=== PATIENT | female | born 1955 | race Two or more races ===

== ENCOUNTER 2023-05-20 22:10 | Inpatient (IN) | payer MEDICARE, OTHER ==
[2023-05-20] MEDS ORDERED: ONDANSETRON 4 MG/2 ML VIAL IVP STA (22:25)
[2023-05-20] MEDS ORDERED: PIPERACILLIN-TAZOBACTAM 3.375 GM in SODIUM CHLORIDE 0.9% 100 ML IVPB STA (22:26)
[2023-05-20] MEDS ORDERED: NALOXONE 0.4 MG/ML 1 ML VIAL IV PRN (22:59)
[2023-05-20] MEDS ORDERED: MORPHINE SULFATE 4 MG/ML SYRINGE IV PRN (23:05)
--- NOTE | 2023-05-20 23:11 | ED ---
Abdominal Pain HPI - General Chief Complaint: Abdominal Pain Stated Complaint: Acute appendicitis Time Seen by Provider: 05/20/23 22:30 Source: patient Mode of arrival: ambulatory Limitations: no limitations - History of Present Illness Initial Comments: Patient presents as a transfer from [place] for acute appendicitis. States that she began having abdominal pain at 2 AM this morning. Described as a generalized pain with nausea and vomiting. Went into the ER where CAT scan was performed and demonstrated a 10 mm fluid filled thick walled appendix with mural enhancement and periappendiceal fat stranding consistent with acute appendicitis. Thickening of the cecum and ascending colon. Wall thickening splenic flexure through rectum. She was given nausea medications and fluids. She was given a dose of Zosyn and requested transfer to our facility as she is currently moving to the area. Patient arrives in continues to complain of [place]. States pain is minimal at a 2 out of 10. Pertinent history regarding the patient's surgical past is that she had a blood clot after back surgery. Denies that she takes any blood thinners at this time. She is status post cholecystectomy and hysterectomy. No other alleviating, precipitating or modifying factors - Related Data Home Medications Medication Instructions Recorded Confirmed Famotidine 40 mg PO BID 05/20/23 05/20/23 LORazepam [Ativan] 0.5 mg PO BID PRN 05/20/23 05/20/23 Levothyroxine Sodium [Synthroid] 75 mcg PO DAILY 05/20/23 05/20/23 Metoprolol Succinate (ER) [Toprol 50 mg PO DAILY 05/20/23 05/20/23 Xl] Oxybutynin Xl [Ditropan XL] 5 mg PO DAILY 05/20/23 05/20/23 Sucralfate [Carafate] 1 gm PO QID PRN 05/20/23 05/20/23 hydroCHLOROthiazide 25 mg PO DAILY 05/20/23 05/20/23 lisinopriL 40 mg PO DAILY 05/20/23 05/20/23 Allergies Allergy/AdvReac Type Severity Reaction Status Date / Time meperidine [From Demerol] Allergy Nausea & Verified 05/20/23 23:09 Vomiting Penicillins Allergy Nausea & Verified 05/20/23 23:09 Vomiting Review of Systems ROS Statement: Those systems with pertinent positive or pertinent negative responses have been documented in the HPI. ROS Other: All systems not noted in ROS Statement are negative. Past Medical History Past Medical History: Cancer, GERD/Reflux, Hypertension, Thyroid Disorder Additional Past Medical History / Comment(s): breast History of Any Multi-Drug Resistant Organisms: None Reported Past Surgical History: Section, Cholecystectomy, Hysterectomy, Tubal Ligation Past Psychological History: No Psychological Hx Reported Smoking Status: Never smoker Past Alcohol Use History: Occasional Past Drug Use History: Marijuana General Exam Limitations: no limitations General appearance: alert, in no apparent distress Head exam: Present: atraumatic, normocephalic, normal inspection Eye exam: Present: normal appearance, PERRL, EOMI. Absent: scleral icterus, conjunctival injection, periorbital swelling ENT exam: Present: normal exam, mucous membranes moist Neck exam: Present: normal inspection. Absent: tenderness, meningismus, lymphadenopathy Respiratory exam: Present: normal lung sounds bilaterally. Absent: respiratory distress, wheezes, rales, rhonchi, stridor Cardiovascular Exam: Present: regular rate, normal rhythm, normal heart sounds. Absent: systolic murmur, diastolic murmur, rubs, gallop, clicks GI/Abdominal exam: Present: soft, tenderness (rlq), normal bowel sounds. Abse nt: distended, guarding, rebound, rigid Extremities exam: Present: normal inspection, full ROM, normal capillary refill. Absent: tenderness, pedal edema, joint swelling, calf tenderness Back exam: Present: normal inspection Neurological exam: Present: alert, oriented X3, CN II-XII intact Psychiatric exam: Present: normal affect, normal mood Skin exam: Present: warm, dry, intact, normal color. Absent: rash Course Vital Signs 05/20/23 22:20 Temperature 99.2 F Pulse Rate 78 Respiratory 16 Rate Blood Pressure 122/95 O2 Sat by Pulse 97 Oximetry Medical Decision Making - Medical Decision Making Was pt. sent in by a medical professional or institution (, PA, PRODUCTION COST ESTIMATOR, urgent care, hospital, or long-term...) When possible be specific @ -Patient was sent in from [facility] in [place] Did you speak to anyone other than the patient for history (EMS, parent, family, police, friend...)? What history was obtained from this source @ -Spoke with EMS in regards to her workup Did you review nursing and triage notes (agree or disagree)? Why? @ -I reviewed and agree with nursing and triage notes Were old charts reviewed (outside hosp., previous admission, EMS record, old EKG, old radiological studies, urgent care reports/EKG's, long-term records)? Report findings @ -No old charts were reviewed Differential Diagnosis (chest pain, altered mental status, abdominal pain women, abdominal pain men, vaginal bleeding, weakness, fever, dyspnea, syncope, headache, dizziness, GI bleed, back pain, seizure, CVA, palpatations, mental health, musculoskeletal)? @ -Differential Abdominal Pain Women: Appendicitis, Cholecystitis, diverticulosis, ischemic bowel, pancreatitis, hepatitis, UTI, gastroenteritis, AAA, incarcerated hernia, bowel obstruction, constipation, inflammatory bowel, hepatitis, peptic ulcer disease, splenic infarction, perforated viscus, vulvitis, ovarian torsion, PID, kidney stone, placenta abruption, this is not meant to be an all-inclusive list EKG interpreted by me (3pts min.). @ -Yes and demonstrates sinus rhythm with a rate of 66. OK interval 184. QRS 101. QTC of 434. No acute ST segment elevations or depressions X-rays interpreted by me (1pt min.). @ -None done CT interpreted by me (1pt min.). @ -None done U/S interpreted by me (1pt. min.). @ -None done What testing was considered but not performed or refused? (CT, X-rays, U/S, labs)? Why? @ -None What meds were considered but not given or refused? Why? @ -None Did you discuss the management of the patient with other professionals (professionals i.e. , PA, PRODUCTION COST ESTIMATOR, lab, RT, psych nurse, social media community manager, curriculum supervisor, teacher, juvenile officer, immigration case manager)? Give summary @ -I spoke with Dr. Russell who accepts admission Was smoking cessation discussed for >3mins.? @ -No Was critical care preformed (if so, how long)? @ -No Were there social determinants of health that impacted care today? How? (Ho melessness, low income, unemployed, alcoholism, drug addiction, transportation, low edu. Level, literacy, decrease access to med. care, correction, rehab)? @ -No Was there de-escalation of care discussed even if they declined (Discuss DNR or withdrawal of care, Hospice)? DNR status @ -No What co-morbidities impacted this encounter? (DM, HTN, Smoking, COPD, CAD, Cancer, CVA, ARF, Chemo, Hep., AIDS, mental health diagnosis, sleep apnea, morbid obesity)? @ -None Was patient admitted / discharged? Hospital course, mention meds given and route, prescriptions, significant lab abnormalities, going to OR and other pertinent info. @ -Arrival patient was placed into room 3. A thorough history and physical exam was performed. Patient was given another dose of Zosyn as it has been 8 hours since her last dose. She is also given a dose of nausea medications. I called and spoke with Dr. Russell who agreed to admit the patient. Patient is allowed to eat. She should have clear liquids for breakfast and be made nothing by mouth at lunch. Antibiotics are ordered as well as antibiotics. She requests medicine consult for clearance and an EKG. All of this is ordered. Patient is taken to the floor in stable condition. Undiagnosed new problem with uncertain prognosis? @ -yes Drug Therapy requiring intensive monitoring for toxicity (Heparin, Nitro, Insulin, Cardizem)? @ -No Were any procedures done? @ -No Diagnosis/symptom? @ -acute abdominal pain, acute appendicitis Acute, or Chronic, or Acute on Chronic? @ -acute Uncomplicated (without systemic symptoms) or Complicated (systemic symptoms)? @ -complicated Side effects of treatment? @ -No Exacerbation, Progression, or Severe Exacerbation? @ -No Poses a threat to life or bodily function? How? (Chest pain, [place], [place], pneumonia, PE, COPD, DKA, ARF, appy, cholecystitis, CVA, Diverticulitis, Homicidal, Suicidal, threat to staff... and all critical care pts) @ -No - Lab Data Result diagrams: 05/20/23 23:48 05/20/23 23:48 Disposition Clinical Impression: Acute appendicitis, Abdominal pain Disposition: ADMITTED IP TO THIS HOSP Condition: Stable Is patient prescribed a controlled substance at d/c from ED?: No Time of Disposition: 23:11 Decision to Admit Reason: Admit from EC Decision Date: 05/20/23 Decision Time: 23:11
[2023-05-20] MEDS: SODIUM CHLORIDE 0.9% 1,000 ML IV SCH (23:47)
[2023-05-21 00:10] LABS: ALT 134 U/L (4-34); AST 230 U/L (14-36); African American GFR (CKD) 71 (>60 ml/min/1.73 sqM); Albumin 3.3 g/dL (3.5-5.0); Alkaline Phosphatase 89 U/L (38-126); Anion Gap 6 mmol/L; Blood Urea Nitrogen 15 mg/dL (7-17); Calcium 8.5 mg/dL (8.4-10.2); Carbon Dioxide 23 mmol/L (22-30); Chloride 108 mmol/L (98-107); Glucose 100 mg/dL (74-99); Non-African American GFR(CKD) 61 (>60 ml/min/1.73 sqM); Potassium 3.7 mmol/L (3.5-5.1); Sodium 137 mmol/L (137-145); Total Bilirubin 1.1 mg/dL (0.2-1.3); Total Protein 6.1 g/dL (6.3-8.2)
[2023-05-21 00:12] LABS: Basophils % (A) 0 %; Eosinophils # (A) 0.1 k/uL (0-0.7); Eosinophils % (A) 1 %; HCT 34.4 % (34.0-46.0); HGB 11.5 gm/dL (11.4-16.0); Lymphocytes # (A) 1.2 k/uL (1.0-4.8); Lymphocytes % (A) 19 %; MCHC 33.4 g/dL (31.0-37.0); MCV 95.9 fL (80.0-100.0); Mean Platelet Volume 7.1; Monocytes # (A) 0.4 k/uL (0-1.0); Monocytes % (A) 6 %; Neutrophils # (A) 4.7 k/uL (1.3-7.7); Neutrophils % (A) 73 %; Platelet Count 163 k/uL (150-450); RBC 3.58 m/uL (3.80-5.40); RDW 13.5 % (11.5-15.5); WBC 6.4 k/uL (3.8-10.6)
--- NOTE | 2023-05-21 05:14 | P.CONS ---
History of Present Illness - Reason for Consult Consult date: 05/21/23 Perioperative medical management - Chief Complaint Appendicitis - History of Present Illness 68-year-old female with hypertension hypothyroid Patient was sent in from [facility] where she presented with abdominal pain and nausea and vomiting since 2 in the morning started Tuesday, co mputed tomography scan was done demonstrated 10 mm fluid-filled thick walled appendix with mural enhancement and periappendiceal fat stranding consistent with acute appendicitis. Patient requested that she transferred to our facility as she is moving to our area Patient reports that pain is under control at this time denies any associated diarrhea or GI bleeding denies any urinary changes denies any chest pain or trouble breathing she reports some low-grade fever and chills along with repeated nausea and vomiting. She has history of hypertension she is compliant with her medications takes l isinopril metoprolol and hydrochlorothiazide at home she also has history of hypothyroid on levothyroxine and history of breast cancer Patient denies tobacco smoking and illicit drugs or alcohol review of systems Pertinent positives as noted in HPI. All other systems were reviewed and are negative on exam Constitutional: No acute distress, conversant, pleasant Eyes: Anicteric sclerae, moist conjunctiva, Pupils equal round reactive to light ENMT: NC/AT Oropharynx clear, no erythema, or exudates Neck: Supple, no masses, or JVD No carotid bruits No thyromegaly Lungs: Clear to auscultation Clear to percussion Normal respiratory effort, no accessory muscle use Cardiovascular: Heart regular in rate and rhythm, No murmurs, gallops, or rubs No peripheral edema Abdominal: Soft Tenderness to palpation over the suprapubic and right lower quadrant and right upper quadrant, no guarding, rebound or rigidity Abdomen moving with respiration Normoactive bowel sounds No hepatomegaly, No splenomegaly No palpable mass No abdominal wall hernia noted Skin: Normal temperature, tone, texture, turgor No induration No subcutaneous nodules No rash, lesions No ulcers Extremities: No digital cyanosis No clubbing Pedal pulses intact and symmetrical Radial pulses intact and symmetrical No calf tenderness Psychiatric: Alert and oriented to person, place and time Appropriate affect fair judgement Neuro Muscles Strength 5/5 in all 4 extremities Sensation to light touch grossly present throughout Cranial nerves II-XII grossly intact Lymphatics: no palpable cervical or supraclavicular lymph nodes Past Medical History Past Medical History: Cancer, GERD/Reflux, Hypertension, Pulmonary Embolus (PE), Thyroid Disorder Additional Past Medical History / Comment(s): breast History of Any Multi-Drug Resistant Organisms: None Reported Past Surgical History: Back Surgery, Section, Cholecystectomy, Hysterectomy, Orthopedic Surgery, Tubal Ligation Past Psychological History: No Psychological Hx Reported Smoking Status: Never smoker Past Alcohol Use History: Occasional Past Drug Use History: Marijuana Medications and Allergies Home Medications Medication Instructions Recorded Confirmed Type Famotidine 40 mg PO BID 05/20/23 05/20/23 History LORazepam [Ativan] 0.5 mg PO BID PRN 05/20/23 05/20/23 History Levothyroxine Sodium [Synthroid] 75 mcg PO DAILY 05/20/23 05/20/23 History Metoprolol Succinate (ER) [Toprol 50 mg PO DAILY 05/20/23 05/20/23 History Xl] Oxybutynin Xl [Ditropan XL] 5 mg PO DAILY 05/20/23 05/20/23 History Sucralfate [Carafate] 1 gm PO QID PRN 05/20/23 05/20/23 History hydroCHLOROthiazide 25 mg PO DAILY 05/20/23 05/20/23 History lisinopriL 40 mg PO DAILY 05/20/23 05/20/23 History Allergies Allergy/AdvReac Type Severity Reaction Status Date / Time meperidine [From Demerol] Allergy Nausea & Verified 05/20/23 23:09 Vomiting Penicillins Allergy Nausea & Verified 05/20/23 23:09 Vomiting Physical Exam Vitals: Vital Signs Temp Pulse Pulse Resp BP BP Pulse Ox 05/21/23 00:16 98.2 F 53 L 16 103/68 96 05/20/23 22:20 99.2 F 78 16 122/95 97 Intake and Output 05/20/23 05/20/23 05/21/23 14:59 22:59 06:59 Other: Weight 74.389 kg 74.389 kg Results CBC & Chem 7: 05/20/23 23:48 05/20/23 23:48 Labs: Abnormal Lab Results - Last 24 Hours (Table) 05/20/23 05/20/23 Range/Units 23:48 23:48 RBC 3.58 L (3.80-5.40) m/uL Chloride 108 H (98-107) mmol/L Glucose 100 H (74-99) mg/dL AST 230 H (14-36) U/L ALT 134 H (4-34) U/L Total Protein 6.1 L (6.3-8.2) g/dL Albumin 3.3 L (3.5-5.0) g/dL Assessment and Plan Assessment: Acute appendicitis computed tomography scan was done demonstrated 10 mm fluid-filled thick walled appendix with mural enhancement and periappendiceal fat stranding consistent with acute appendicitis. Follow-up cultures Tylenol for fever Zosyn 3.5 g every 8 hours IV piggyback Further management per primary surgical team Nadia Joyce after midnight IV fluid hydration normal saline with 30 mL per hour Transaminitis AST is 230 ALT is 137 No reports of gallstones on the CAT scan However CAT scan did show thickening of the cecum and ascending colon and splenic flexure Monitor liver enzymes Avoid hepatotoxic meds Hypertension controlled Continue metoprolol Continue lisinopril on postoperative day #1 Hold diuretics Hypothyroid Resume levothyroxine If patient goes strict nothing by mouth consider giving 50% of the oral dose IV DVT prophylaxis heparin subcu 3 times a day Nothing by mouth Full code Blood work showing hemoglobin 11.5 white count 6.4 Renal function unremarkable showing BUN 15 creatinine 0.9 sodium 137 potassium 3.7
[2023-05-21] MEDS: LEVOTHYROXINE 75 MCG TAB PO SCH (06:19)
[2023-05-21] MEDS: PIPERACILLIN-TAZOBACTAM 3.375 GM in SODIUM CHLORIDE 0.9% 100 ML IVPB SCH ×3 (06:19→22:45)
[2023-05-21] MEDS: METOPROLOL SUCCINATE (ER) 50 MG TAB.ER.24H PO SCH (09:16)
[2023-05-21] MEDS: FAMOTIDINE 20 MG TAB PO SCH ×2 (09:16→20:19)
[2023-05-21] MEDS: SODIUM CHLORIDE 0.9% 1,000 ML IV SCH ×3 (09:16→22:46)
[2023-05-21 09:58] LABS: ALT 108 U/L (4-34); AST 136 U/L (14-36); African American GFR (CKD) 71 (>60 ml/min/1.73 sqM); Albumin 3.2 g/dL (3.5-5.0); Albumin/Globulin Ratio 1.2; Alkaline Phosphatase 77 U/L (38-126); Anion Gap 8 mmol/L; Blood Urea Nitrogen 13 mg/dL (7-17); Calcium 8.3 mg/dL (8.4-10.2); Carbon Dioxide 22 mmol/L (22-30); Chloride 109 mmol/L (98-107); Globulin 2.7 g/dL; Glucose 73 mg/dL (74-99); Non-African American GFR(CKD) 62 (>60 ml/min/1.73 sqM); Potassium 3.7 mmol/L (3.5-5.1); Sodium 139 mmol/L (137-145); Total Bilirubin 0.9 mg/dL (0.2-1.3); Total Protein 5.9 g/dL (6.3-8.2)
--- NOTE | 2023-05-21 11:14 | P.GSHP ---
History of Present Illness H&P Date: 05/21/23 CHIEF COMPLAINT: Abdominal pain HISTORY OF PRESENT ILLNESS: The patient is a 68 year old female with past history of breast cancer including bilateral breast reconstruction who comes in with a 2 day history of acute onset right-sided abdominal pain. She reports the pain radiates right upper quadrant to right lower quadrant. She denies previous symptoms. Separately, she reports due for a colonoscopy in almost 10 years. Patient presented to her local hospital and transferred to facility for colitis and possible appendicitis. PAST MEDICAL HISTORY: See list and reviewed PAST SURGICAL HISTORY: See list and reviewed MEDICATIONS: See list and reviewed ALLERGIES: See list and reviewed SOCIAL HISTORY: See list and reviewed FAMILY HISTORY: See list and reviewed REVIEW OF ORGAN SYSTEMS: CONSTITUTIONAL: No fevers or chills. EYES: Denies any trouble with vision. No glasses. HEENT: No difficulties with hearing. No nosebleeds. No difficulty swallowing. RESPIRATORY: Denies pneumonia. Denies any troubles with breathing or dyspnea on exertion. CARDIOVASCULAR: Denies any chest pain, palpitations, or recent heart attacks. GASTROINTESTINAL: Has gastroesophageal reflux disease. Last colonoscopy 10 years ago. GENITOURINARY: Denies any blood in urine or increased urinary frequency. NEUROLOGICAL: Denies any numbness or tingling along the distal extremities. No seizure disorders or headaches. MUSCULOSKELETAL: Denies any back pain, stiffness or joint arthritis. SKIN: No current skin cancer. No rash. PSYCHIATRIC: Denies current depression or suicidal thoughts. ENDOCRINE: Denies current thyroid disorders. Denies any blood sugar glucose intolerance. HEME/LYMPHATIC: Denies any lumps and bumps around the neck. No recent deep venous thrombosis. ALLERGY/IMMUNOLOGY: No immunoglobulin therapy. No immune deficiencies. BREAST: Breast cancer and bilateral reconstruction PHYSICAL EXAM: VITALS: Reviewed CONSTITUTIONAL: Well developed and in no acute distress. EYES: Conjuctivae without sclera icterus. Extraocular movements grossly intact. HEAD, EARS, NOSE, THROAT: Moist buccal mucosa. Head is atraumatic, normocephalic. Hears conversational speech. No nasal drainage. NECK: Supple. No JV distention. No thyroidomegaly. RESPIRATORY: Non-labored respirations and equal bilateral excursions. No gross wheezes. CARDIOVASCULAR: Palpable 2+ radial pulses. ABDOMEN: Tender right-sided abdomen including right upper quadrant. LYMPH: No neck lymphadenopathy. MUSCULOSKELETAL: No clubbing cyanosis or edema SKIN: Warm and well perfused with good skin turgor. NEUROLOGIC: Cranial nerves II through XII grossly intact. No focal or lateralizing signs. PSYCH: Appropriate affect. Alert and oriented to person, place and time. Displays appropriate insight. CLINCAL LABS: Reviewed. WBC normal. IMAGING: Independently reviewed outside imaging demonstrated inflammation involving the ascending colon including hepatic flexure, right lower quadrant and retroperitoneum. Questionable fluid-filled appendix versus small bowel. This is my independent interpretation. RECORDS: previous old records reviewed ASSESSMENT: 1. Right-sided abdominal pain 2. Colitis per computed tomography scan 3. Personal history of breast cancer PLAN: 1. IV fluid hydration. 2. IV antibiotics 3. Recommend repeat CT abdomen and pelvis due to vague presentation of colitis with appendicitis. Treatment of colitis is antibiotics only. 4. Surgical intervention on hold pending repeat CT 5. Care plan discussed with patient ADVANCE DIRECTIVE: Thank you for this kind consultation. Past Medical History Past Medical History: Cancer, GERD/Reflux, Hypertension, Thyroid Disorder Additional Past Medical History / Comment(s): breast History of Any Multi-Drug Resistant Organisms: None Reported Past Surgical History: Section, Cholecystectomy, Hysterectomy, Tubal Ligation Past Psychological History: No Psychological Hx Reported Smoking Status: Never smoker Past Alcohol Use History: Occasional Past Drug Use History: Marijuana Medications and Allergies Home Medications Medication Instructions Recorded Confirmed Type Famotidine 40 mg PO BID 05/20/23 05/20/23 History LORazepam [Ativan] 0.5 mg PO BID PRN 05/20/23 05/20/23 History Levothyroxine Sodium [Synthroid] 75 mcg PO DAILY 05/20/23 05/20/23 History Metoprolol Succinate (ER) [Toprol 50 mg PO DAILY 05/20/23 05/20/23 History Xl] Oxybutynin Xl [Ditropan XL] 5 mg PO DAILY 05/20/23 05/20/23 History Sucralfate [Carafate] 1 gm PO QID PRN 05/20/23 05/20/23 History hydroCHLOROthiazide 25 mg PO DAILY 05/20/23 05/20/23 History lisinopriL 40 mg PO DAILY 05/20/23 05/20/23 History Allergies Allergy/AdvReac Type Severity Reaction Status Date / Time meperidine [From Demerol] Allergy Nausea & Verified 05/20/23 23:09 Vomiting Penicillins Allergy Nausea & Verified 05/20/23 23:09 Vomiting Surgical - Exam Vital Signs Temp Pulse Resp BP Pulse Ox 99.2 F 78 16 122/95 97 05/20/23 22:20 05/20/23 22:20 05/20/23 22:20 05/20/23 22:20 05/20/23 22:20 Results - Labs 05/20/23 23:48 05/21/23 08:10 Abnormal Lab Results - Last 24 Hours (Table) 05/20/23 05/20/23 05/21/23 Range/Units 23:48 23:48 08:10 RBC 3.58 L (3.80-5.40) m/uL Chloride 108 H 109 H (98-107) mmol/L Glucose 100 H 73 L (74-99) mg/dL Calcium 8.3 L (8.4-10.2) mg/dL AST 230 H 136 H (14-36) U/L ALT 134 H 108 H (4-34) U/L Total Protein 6.1 L 5.9 L (6.3-8.2) g/dL Albumin 3.3 L 3.2 L (3.5-5.0) g/dL Diabetes panel 05/20/23 05/21/23 Range/Units 23:48 08:10 Sodium 137 139 (137-145) mmol/L Potassium 3.7 3.7 (3.5-5.1) mmol/L Chloride 108 H 109 H (98-107) mmol/L Carbon Dioxide 23 22 (22-30) mmol/L BUN 15 13 (7-17) mg/dL Creatinine 0.97 0.96 (0.52-1.04) mg/dL Glucose 100 H 73 L (74-99) mg/dL Calcium 8.5 8.3 L (8.4-10.2) mg/dL AST 230 H 136 H (14-36) U/L ALT 134 H 108 H (4-34) U/L Alkaline Phosphatase 89 77 (38-126) U/L Total Protein 6.1 L 5.9 L (6.3-8.2) g/dL Albumin 3.3 L 3.2 L (3.5-5.0) g/dL Calcium panel 05/20/23 05/21/23 Range/Units 23:48 08:10 Calcium 8.5 8.3 L (8.4-10.2) mg/dL Albumin 3.3 L 3.2 L (3.5-5.0) g/dL Pituitary panel 05/20/23 05/21/23 Range/Units 23:48 08:10 Sodium 137 139 (137-145) mmol/L Potassium 3.7 3.7 (3.5-5.1) mmol/L Chloride 108 H 109 H (98-107) mmol/L Carbon Dioxide 23 22 (22-30) mmol/L BUN 15 13 (7-17) mg/dL Creatinine 0.97 0.96 (0.52-1.04) mg/dL Glucose 100 H 73 L (74-99) mg/dL Calcium 8.5 8.3 L (8.4-10.2) mg/dL Adrenal panel 05/20/23 05/21/23 Range/Units 23:48 08:10 Sodium 137 139 (137-145) mmol/L Potassium 3.7 3.7 (3.5-5.1) mmol/L Chloride 108 H 109 H (98-107) mmol/L Carbon Dioxide 23 22 (22-30) mmol/L BUN 15 13 (7-17) mg/dL Creatinine 0.97 0.96 (0.52-1.04) mg/dL Glucose 100 H 73 L (74-99) mg/dL Calcium 8.5 8.3 L (8.4-10.2) mg/dL Total Bilirubin 1.1 0.9 (0.2-1.3) mg/dL AST 230 H 136 H (14-36) U/L ALT 134 H 108 H (4-34) U/L Alkaline Phosphatase 89 77 (38-126) U/L Total Protein 6.1 L 5.9 L (6.3-8.2) g/dL Albumin 3.3 L 3.2 L (3.5-5.0) g/dL
[2023-05-21] MEDS: IOPAMIDOL CONTRAST (ORAL USE) VIAL PO PRN ×2 (11:22→12:31)
[2023-05-21 11:33] VITALS: BMI 30.9
[2023-05-21] MEDS: metroNIDAZOLE-NS PMX 500 MG in SALINE 1 100ML.BAG IVPB SCH ×2 (14:15→17:51)
--- NOTE | 2023-05-21 15:06 | P.PN ---
Subjective Progress Note Date: 05/21/23 CT independently reviewed with appendix unremarkable. Inflammation of the ascending colon and hepatic flexure identified. Adding IV flagyl. Low fiber diet. Await final read from radiology. Surgery today cancelled due to new findings. Objective - Vital Signs Vital signs: Vital Signs Temp 97.9 F 05/21/23 07:00 Pulse 50 L 05/21/23 07:00 Resp 16 05/21/23 07:00 BP 99/61 05/21/23 07:00 Pulse Ox 98 05/21/23 07:00 FiO2 Intake & Output 05/20/23 05/21/23 05/21/23 18:59 06:59 18:59 Weight 74.389 kg 74.389 kg Other: # Voids 2 - Labs CBC & Chem 7: 05/20/23 23:48 05/21/23 08:10 Labs: Abnormal Lab Results - Last 24 Hours (Table) 05/20/23 05/20/23 05/21/23 Range/Units 23:48 23:48 08:10 RBC 3.58 L (3.80-5.40) m/uL Chloride 108 H 109 H (98-107) mmol/L Glucose 100 H 73 L (74-99) mg/dL Calcium 8.3 L (8.4-10.2) mg/dL AST 230 H 136 H (14-36) U/L ALT 134 H 108 H (4-34) U/L Total Protein 6.1 L 5.9 L (6.3-8.2) g/dL Albumin 3.3 L 3.2 L (3.5-5.0) g/dL
[2023-05-21] MEDS: HEPARIN SODIUM,PORCINE 5,000 UNIT/ML 1 ML VIAL SQ SCH ×2 (16:16→22:51)
--- NOTE | 2023-05-21 16:44 | CT ---
EXAMINATION TYPE: CT abdomen pelvis w con DATE OF EXAM: 05/21/2023 COMPARISON: 05/20/2023 INDICATION: Right-sided abdominal pain DLP: 909.20 mGycm, Automated exposure control for dose reduction was used. CONTRAST: 0 mL of Isovue 300. Study performed with Oral Contrast TECHNIQUE: Axial images were obtained from above the diaphragm to the pubic rami in the axial plane a t 5 mm thick sections. Reconstructed images are reviewed on the computer in the coronal plane. FINDINGS: Limited CT sections are obtained the lung bases. The lung bases are clear. Needle hernia is present . Some reflux into the hiatal hernia is evident. CT ABDOMEN: Liver: Normal Spleen: Normal Pancreas: Normal Adrenal glands: The adrenal glands are normal. Gallbladder: Normal Kidneys: No masses are evident. No hydronephrosis is present. There is a 5.4 cm cyst on the upper m edial pole right kidney. Delayed images were obtained through the kidneys, which remain unremarkable . Aorta: Vascular calcification is within the aorta. Inferior vena cava: Normal. CT PELVIS: There is some mild wall thickening within the region of the cecum. Some mild inflammatory changes in right paracolic gutter. Oral contrast extends to the ascending colon region. Air-fluid levels are wit hin proximal transverse colon. Small thickenings transverse colon. Some sigmoid colon wall thickening may be present. Mild colitis in this region should be considered. No acute diverticulitis is evident . There are loops of bowel which are incompletely distended or lack oral contrast limiting their eval uation. Appendix: The appendix may be dilated measuring 1.2 cm. Clinical consideration for acute appendicitis is recommended. This is in the region of inflammatory changes. Urinary bladder: Normal. Genitourinary structures: Prostate is normal. Osseous structures: No suspicious lytic or sclerotic lesions. Post surgical lumbosacral junction fixa tion present. Scoliosis is present. IMPRESSION: 1. Clinical correlation recommended for colitis at the ascending colon and sigmoid colon. 2. There may be inflammatory changes adjacent to dilated appendix suggesting underlying acute appendi citis. Correlate for the patient's surgical history. 3. Hiatal hernia with reflux present.
[2023-05-21] MEDS: ONDANSETRON 4 MG/2 ML VIAL IVP PRN (20:14)
[2023-05-21] MEDS: ACETAMINOPHEN TAB 325 MG TAB PO PRN (20:19)
[2023-05-22] MEDS: metroNIDAZOLE-NS PMX 500 MG in SALINE 1 100ML.BAG IVPB SCH ×5 (00:32→23:44)
[2023-05-22] MEDS: ACETAMINOPHEN TAB 325 MG TAB PO PRN ×2 (00:36→06:04)
[2023-05-22] MEDS: ONDANSETRON 4 MG/2 ML VIAL IVP PRN ×2 (03:45→11:52)
[2023-05-22] MEDS: LEVOTHYROXINE 75 MCG TAB PO SCH (06:03)
[2023-05-22] MEDS: SODIUM CHLORIDE 0.9% 1,000 ML IV SCH ×3 (06:09→22:09)
[2023-05-22 06:23] LABS: ALT 67 U/L (4-34); AST 69 U/L (14-36); African American GFR (CKD) 78 (>60 ml/min/1.73 sqM); Albumin 2.8 g/dL (3.5-5.0); Albumin/Globulin Ratio 1.2; Alkaline Phosphatase 61 U/L (38-126); Anion Gap 5 mmol/L; Blood Urea Nitrogen 10 mg/dL (7-17); Carbon Dioxide 21 mmol/L (22-30); Chloride 113 mmol/L (98-107); Globulin 2.3 g/dL; Glucose 89 mg/dL (74-99); Non-African American GFR(CKD) 68 (>60 ml/min/1.73 sqM); Potassium 3.6 mmol/L (3.5-5.1); Sodium 139 mmol/L (137-145); Total Bilirubin 0.7 mg/dL (0.2-1.3); Total Protein 5.1 g/dL (6.3-8.2)
[2023-05-22] MEDS: PIPERACILLIN-TAZOBACTAM 3.375 GM in SODIUM CHLORIDE 0.9% 100 ML IVPB SCH ×3 (06:36→22:25)
[2023-05-22 06:43] LABS: Basophils % (A) 0 %; Eosinophils # (A) 0.1 k/uL (0-0.7); Eosinophils % (A) 2 %; HGB 10.9 gm/dL (11.4-16.0); Lymphocytes # (A) 0.9 k/uL (1.0-4.8); Lymphocytes % (A) 27 %; MCHC 33.9 g/dL (31.0-37.0); MCV 97.3 fL (80.0-100.0); Mean Platelet Volume 7.5; Monocytes # (A) 0.2 k/uL (0-1.0); Monocytes % (A) 7 %; Neutrophils % (A) 62 %; Platelet Count 114 k/uL (150-450); RBC 3.29 m/uL (3.80-5.40); RDW 13.4 % (11.5-15.5); WBC 3.2 k/uL (3.8-10.6)
[2023-05-22] MEDS: METOPROLOL SUCCINATE (ER) 50 MG TAB.ER.24H PO SCH (08:47)
[2023-05-22] MEDS: FAMOTIDINE 20 MG TAB PO SCH ×2 (08:47→19:55)
[2023-05-22] MEDS: HEPARIN SODIUM,PORCINE 5,000 UNIT/ML 1 ML VIAL SQ SCH ×3 (08:47→19:56)
[2023-05-22] MEDS: lisinopriL 20 MG TAB PO SCH (08:47)
--- NOTE | 2023-05-22 09:29 | P.PN ---
Subjective Progress Note Date: 05/22/23 CHIEF COMPLAINT: Abdominal pain with diarrhea HISTORY OF PRESENT ILLNESS: The patient is a 68-year-old female admitted from outside institution for possible appendicitis. She gives additional history w here she confirms having chronic diarrhea including abdominal pain beyond 1 week to 2 weeks. This morning, abdominal pain has improved with IV antibiotics Flagyl including Zosyn. She reports diarrhea this morning which is clear. She has not had colonoscopy in almost 10 years. No fevers or chills. ROS: No reports of nausea and vomiting. No fevers or chills. No new chest pain. No productive sputum PHYSICAL EXAM: VITAL SIGNS: Reviewed CONSTITUTIONAL: Well developed and in no acute distress. EYES: Conjuctivae without sclera icterus. Extraocular movements grossly intact. HEAD, EARS, NOSE, THROAT: Moist buccal mucosa. Head is atraumatic, normocephalic. Hears conversational speech. No nasal drainage. RESPIRATORY: Non-labored respirations and equal bilateral excursions. CARDIOVASCULAR: Palpable 2+ radial pulses. ABDOMEN: No peritonitis. Decrease right-sided tenderness. MUSCULOSKELETAL: No gross deformity of the lower extremities noted. No clubbing. No cyanosis. SKIN: Good skin turgor. Well perfused. NEUROLOGIC: Cranial nerves II through XII grossly intact. No focal or lateralizing signs. PSYCH: Appropriate affect. Alert and oriented to person, place and time. CLINICAL LABS: Reviewed. WBC down 6.4-3.2, leukopenia. Hemoglobin down 11.5 to 10.9, anemia. LFTs elevated but trending downward STUDIES: CT of the abdomen and pelvis independent review demonstrates thickening of the cecum and ascending colon hepatic flexure and sigmoid colon suspicious for colitis. This is my independent interpretation. REPORT: CT report reviewed demonstrates colitis of the right colon and dilated appendix was involvement of inflammatory changes from the cecum. ASSESSMENT: 1. Colitis with involvement of the appendix 2. Appendicitis due to colitis 3. Leukopenia 4. Anemia 5. Diarrhea 6. Right-sided abdominal pain 7. Elevated liver enzymes PLAN: 1. Overall, her clinical picture favors colitis over appendicitis. With additional diagnostic studies of elevated liver enzymes, leukopenia, colitis affecting the ascending colon was diarrhea, recommend treatment for colitis. Risks of fistula creation and presence of colitis was described. Sheer decision making performed in agreeable with canceling surgery for today for appendectomy. 2. Additionally, patient would most benefit from a colonoscopy however due to her acute symptoms recommend treatment colitis will stool cultures including C. diff 3. CRP levels being obtained. 4. Recommend full inpatient hospitalization due to colitis, abdominal pain, leukopenia 5. First-line treatment of appendicitis also includes IV antibiotics. 6. Low fiber diet Objective - Vital Signs Vital signs: Vital Signs Temp 98.1 F 05/22/23 07:00 Pulse 73 05/22/23 07:00 Resp 16 05/22/23 07:00 BP 121/73 05/22/23 07:00 Pulse Ox 98 05/22/23 07:00 FiO2 Intake & Output 05/21/23 05/22/23 05/22/23 18:59 06:59 18:59 Weight 74.389 kg Other: # Voids 1 1 # Bowel Movements 1 - Labs CBC & Chem 7: 05/22/23 05:47 05/22/23 05:47 Labs: Abnormal Lab Results - Last 24 Hours (Table) 05/21/23 05/22/23 05/22/23 Range/Units 08:10 05:47 05:47 WBC 3.2 L (3.8-10.6) k/uL RBC 3.29 L (3.80-5.40) m/uL Hgb 10.9 L (11.4-16.0) gm/dL Hct 32.0 L (34.0-46.0) % Plt Count 114 L (150-450) k/uL Lymphocytes # 0.9 L (1.0-4.8) k/uL Chloride 109 H 113 H (98-107) mmol/L Carbon Dioxide 21 L (22-30) mmol/L Glucose 73 L (74-99) mg/dL Calcium 8.3 L 8.0 L (8.4-10.2) mg/dL AST 136 H 69 H (14-36) U/L ALT 108 H 67 H (4-34) U/L Total Protein 5.9 L 5.1 L (6.3-8.2) g/dL Albumin 3.2 L 2.8 L (3.5-5.0) g/dL
--- NOTE | 2023-05-22 13:51 | P.PN ---
Subjective Progress Note Date: 05/22/23 Subjective: Seen and examined at bedside. No acute events overnight. Still has minor right-sided abdominal pain with diarrhea. Claims has some nausea, but denies any vomiting. Pertinent positives and negatives as discussed above, a complete review of systems was performed and all other systems are negative. Vitals Signs Reviewed. General: nontoxic, no distress, appears at stated age Derm: warm, dry Head: atraumatic, normocephalic, symmetric Eyes: EOMI, no lid lag, anicteric sclera Mouth: no lip lesion, mucus membranes moist Cardiovascular: S1S2 reg, no murmur Lungs: CTA bilateral, no rhonchi, no rales , no accessory muscle use Abdominal: soft, mild tenderness to palpation on the right lower quadrant, no guarding, no appreciable organomegaly Ext: no gross muscle atrophy, no edema, no contractures Neuro: CN II-XI grossly intact, no focal neuro deficits Psych: Alert, oriented, appropriate affect Data Reviewed Today: Pertinent Labs: WBC 3.2, hemoglobin 10.9 , platelets 114, bicarb 21, creatinine 0.89, AST 69, ALT 67, CRP 7.3 Imaging: CT abdomen and pelvis shows colitis had ascending colon and sigmoid colon, dilated appendix, hiatal hernia with reflux. Assessment and Plan: Active: Colitis, unclear etiology Appendicitis Pancytopenia Transaminitis Non-anion gap metabolic acidosis -Surgery note reviewed, abdominal pain likely secondary to colitis, appendicitis less likely, C. diff ordered, continue IV antibiotics, continue low fiber diet -Stool cultures and C. diff pending -Pancytopenia possibly in the setting of acute illness, continue to monitor, less likely, but it could also be related to IV antibiotics -Transaminitis improving -Metabolic acidosis in the setting of diarrhea -Repeat BMP tomorrow -Hold hydrochlorothiazide, continue IV fluids Chronic: Hypothyroidism Hypertension Thank you for allowing us to participate in the care of this pleasant patient. Do not hesitate to contact us with questions. Someone can be reached from the [facility] hospitalist group all hours of the day at [phone] or via [employer] serve. Objective - Vital Signs Vital signs: Vital Signs Temp 98.1 F 05/22/23 07:00 Pulse 73 05/22/23 07:00 Resp 16 05/22/23 07:00 BP 121/73 05/22/23 07:00 Pulse Ox 98 05/22/23 07:00 FiO2 Intake & Output 05/21/23 05/22/23 05/22/23 18:59 06:59 18:59 Weight 74.389 kg Other: # Voids 1 1 # Bowel Movements 1 - Labs CBC & Chem 7: 05/22/23 05:47 05/22/23 05:47 Labs: Abnormal Lab Results - Last 24 Hours (Table) 05/22/23 05/22/23 05/22/23 Range/Units 05:47 05:47 05:47 WBC 3.2 L (3.8-10.6) k/uL RBC 3.29 L (3.80-5.40) m/uL Hgb 10.9 L (11.4-16.0) gm/dL Hct 32.0 L (34.0-46.0) % Plt Count 114 L (150-450) k/uL Lymphocytes # 0.9 L (1.0-4.8) k/uL Chloride 113 H (98-107) mmol/L Carbon Dioxide 21 L (22-30) mmol/L Calcium 8.0 L (8.4-10.2) mg/dL AST 69 H (14-36) U/L ALT 67 H (4-34) U/L C-Reactive Protein 7.30 H (0.00-0.80) mg/dL Total Protein 5.1 L (6.3-8.2) g/dL Albumin 2.8 L (3.5-5.0) g/dL
[2023-05-22] MEDS ORDERED: SCOPOLAMINE 1 MG/72 HR PATCH TRANSDERM STA (14:04)
[2023-05-22] MEDS: ONDANSETRON 4 MG/2 ML VIAL IVP SCH ×3 (14:23→23:44)
[2023-05-22] MEDS: KETOROLAC 15 MG/ML 1 ML VIAL IVP SCH ×2 (17:47→23:44)
[2023-05-22] MEDS ORDERED: TRIMETHOBENZAMIDE 100 MG/ML 2 ML VIAL IM PRN (21:13)
[2023-05-22] MEDS ORDERED: SODIUM CHLORIDE 0.9% 1,000 ML IV ONE (21:14)
[2023-05-23] MEDS: SODIUM CHLORIDE 0.9% 1,000 ML IV SCH ×3 (03:50→20:05)
[2023-05-23] MEDS: KETOROLAC 15 MG/ML 1 ML VIAL IVP SCH ×4 (06:15→23:13)
[2023-05-23] MEDS: ONDANSETRON 4 MG/2 ML VIAL IVP SCH ×4 (06:15→23:13)
[2023-05-23] MEDS: PIPERACILLIN-TAZOBACTAM 3.375 GM in SODIUM CHLORIDE 0.9% 100 ML IVPB SCH ×3 (06:15→23:13)
[2023-05-23] MEDS: metroNIDAZOLE-NS PMX 500 MG in SALINE 1 100ML.BAG IVPB SCH (06:16)
[2023-05-23] MEDS: LEVOTHYROXINE 75 MCG TAB PO SCH (06:16)
--- NOTE | 2023-05-23 07:57 | XR ---
EXAMINATION TYPE: XR abdomen 2V DATE OF EXAM: 05/22/2023 COMPARISON: CT abdomen pelvis 05/21/2023 HISTORY: Ileus, abdominal pain TECHNIQUE: Upright and supine views of the abdomen were obtained FINDINGS: Small bowel demonstrates no evidence for dilatation or air fluid levels. Gas and fecal material is seen in non-distended colon. No convincing evidence for pneumoperitoneum. No unusual calcifications. Cholecystectomy clips in right upper quadrant. The lung bases are clear. The osseous structures are intact. Post fusion changes at L5-S1. Mild levoscoliotic curvature of the lumbar spine. IMPRESSION: Overall nonobstructive bowel gas pattern.
[2023-05-23 08:39] LABS: Basophils # (A) 0.03 X 10*3/uL (0.00-0.10); Basophils % (A) 0.8 %; Eosinophils # (A) 0.03 X 10*3/uL (0.04-0.35); Eosinophils % (A) 0.8 %; HCT 27.9 % (37.2-46.3); HGB 9.1 d/dL (12.0-15.0); Lymphocytes # (A) 1.13 X 10*3/uL (0.90-5.00); Lymphocytes % (A) 30.9 %; MCH 31.6 pg (27.0-32.0); MCHC 32.6 d/dL (32.0-37.0); MCV 96.9 FL (80.0-97.0); Mean Platelet Volume 9.9 FL (9.5-12.2); Monocytes # (A) 0.29 X 10*3/uL (0.20-1.00); Monocytes % (A) 7.9 %; NRBC Per 100 WBC 0 X 10*3/uL (0.00-0.01); Neutrophils # (A) 2.17 X 10*3/uL (1.80-7.70); Neutrophils % (A) 59.3 %; Platelet Count 135 X 10*3/uL (140-440); RBC 2.88 X 10*6/uL (4.10-5.20); RDW 13.3 % (11.5-14.5); WBC 3.66 X 10*3/uL (4.50-10.00)
[2023-05-23 08:59] LABS: ALT 46 U/L (8-44); AST 41 U/L (13-35); Albumin 3.2 d/dL (3.8-4.9); Alkaline Phosphatase 55 U/L (41-126); BUN/Creat Ratio 7.33 Ratio (12.00-20.00); Blood Urea Nitrogen 6.6 mg/dL (9.0-27.0); Calcium 8.1 mg/dL (8.7-10.3); Carbon Dioxide 19.5 mmol/L (21.6-31.8); Chloride 112 mmol/L (96-109); Globulin 1.6 d/dL (1.6-3.3); Glucose 79 mg/dL (70-110); Potassium 3.4 mmol/L (3.5-5.5); Sodium 142 mmol/L (135-145); Total Bilirubin 0.3 mg/dL (0.3-1.2); Total Protein 4.8 d/dL (6.2-8.2)
[2023-05-23] MEDS: HEPARIN SODIUM,PORCINE 5,000 UNIT/ML 1 ML VIAL SQ SCH ×2 (09:11→20:14)
[2023-05-23] MEDS: FAMOTIDINE 20 MG TAB PO SCH (09:12)
[2023-05-23] MEDS: METOPROLOL SUCCINATE (ER) 50 MG TAB.ER.24H PO SCH (09:12)
[2023-05-23] MEDS: lisinopriL 20 MG TAB PO SCH (09:12)
[2023-05-23] MEDS: POTASSIUM CHLORIDE ER 20 MEQ TAB.ER PO SCH ×2 (10:45→12:22)
[2023-05-23] MEDS ORDERED: POTASSIUM CHLORIDE ER 20 MEQ TAB.ER PO STA (11:27)
--- NOTE | 2023-05-23 11:28 | P.PN ---
Subjective Progress Note Date: 05/23/23 CHIEF COMPLAINT: Colitis HISTORY OF PRESENT ILLNESS: Patient reports that she is better. She has been schumacher ving nausea and dry heaves which is started after starting the Flagyl. Abdominal x-ray had shown nonspecific bowel gas pattern no evidence of ileus. Stool for C. diff negative. CRP is elevated. Afebrile. WBC 3.66 potassium is 3.4 stool cultures pending LFTs trending down PHYSICAL EXAM: VITAL SIGNS: Reviewed GENERAL: Well-developed in no acute distress. HEENT: No sclera icterus. Extraocular movements grossly intact. Moist buccal mucosa. Head is atraumatic, normocephalic. Hears conversational speech. No nasal drainage. NECK: Supple without lymphadenopathy. CHEST: Non-labored respirations and equal bilateral excursions. CARDIOVASCULAR: Palpable 2+ radial pulses. ABDOMEN: Soft. Nondistended. MUSCULOSKELETAL: No clubbing or cyanosis. NEUROLOGIC: No focal or lateralizing signs. Cranial nerves II through XII grossly intact. PSYCH: Appropriate affect. Alert and oriented to person, place and time. SKIN: Well perfused. Good skin turgor. ASSESSMENT: 1. Colitis with involvement of the appendix 2. Appendicitis due to colitis 3. Leukopenia 4. Anemia 5. Diarrhea 6. Right-sided abdominal pain 7. Elevated liver enzymes 8. History of breast cancer 9. Hypokalemia PLAN: -Discontinue Flagyl due to a likely causing patient's nausea and dry heaves -Continue Zosyn for colitis -Awaiting stool culture results. Depending on culture results patient may require an inpatient colonoscopy -Continue IV fluids -Continue low fiber diet -Replace potassium Physician Web Marketing Coordinator note has been reviewed by physician. Signing provider agrees with the documented findings, assessment, and plan of care. Objective - Vital Signs Vital signs: Vital Signs Temp 98.3 F 05/23/23 07:00 Pulse 58 L 05/23/23 07:00 Resp 18 05/23/23 07:00 BP 157/80 05/23/23 07:00 Pulse Ox 92 L 05/23/23 07:00 FiO2 Intake & Output 05/22/23 05/23/23 05/23/23 18:59 06:59 18:59 Output Total 0 Balance 0 Output: Emesis 0 Other: # Voids 10 1 # Bowel Movements 4 - Labs CBC & Chem 7: 05/23/23 05:40 05/23/23 05:40 Labs: Abnormal Lab Results - Last 24 Hours (Table) 05/23/23 05/23/23 Range/Units 05:40 05:40 WBC 3.66 L (4.50-10.00) X 10*3/uL RBC 2.88 L (4.10-5.20) X 10*6/uL Hgb 9.1 L (12.0-15.0) d/dL Hct 27.9 L (37.2-46.3) % Plt Count 135 L (140-440) X 10*3/uL Eosinophils # 0.03 L (0.04-0.35) X 10*3/uL Potassium 3.4 L (3.5-5.5) mmol/L Chloride 112 H (96-109) mmol/L Carbon Dioxide 19.5 L (21.6-31.8) mmol/L BUN 6.6 L (9.0-27.0) mg/dL BUN/Creatinine Ratio 7.33 L (12.00-20.00) Ratio Calcium 8.1 L (8.7-10.3) mg/dL AST 41 H (13-35) U/L ALT 46 H (8-44) U/L Total Protein 4.8 L (6.2-8.2) d/dL Albumin 3.2 L (3.8-4.9) d/dL
--- NOTE | 2023-05-23 14:41 | P.PN ---
Subjective Progress Note Date: 05/23/23 Subjective: Seen and examined at bedside. No acute events overnight. Abdominal pain r esolved. Nausea resolved. Diarrhea resolved. Pertinent positives and negatives as discussed above, a complete review of systems was performed and all other systems are negative. Vitals Signs Reviewed. General: nontoxic, no distress, appears at stated age Derm: warm, dry Head: atraumatic, normocephalic, symmetric Eyes: EOMI, no lid lag, anicteric sclera Mouth: no lip lesion, mucus membranes moist Cardiovascular: S1S2 reg, no murmur Lungs: CTA bilateral, no rhonchi, no rales , no accessory muscle use Abdominal: soft, nontender, no guarding, no appreciable organomegaly Ext: no gross muscle atrophy, no edema, no contractures Neuro: CN II-XI grossly intact, no focal neuro deficits Psych: Alert, oriented, appropriate affect Data Reviewed Today: Pertinent Labs: WBC 3.66, hemoglobin 9.1, platelet count 135, potassium 3.4, bicarb 19.5, creatinine 0.9, total bilirubin 0.3, AST 41, ALT 46, stool lactoferrin negative, C. diff negative Imaging: Nonobstructive bowel gas pattern Assessment and Plan: Active: Colitis, likely infectious Suspected Appendicitis Pancytopenia, improving Transaminitis, improving Hypokalemia Non-anion gap metabolic acidosis -Surgery note reviewed, hold Flagyl, continue IV Zosyn, waiting for stool cultures -C. diff negative, stool lactoferrin negative -Pancytopenia possibly in the setting of acute illness, continue to monitor, less likely, but it could also be related to IV antibiotics -Transaminitis improving -Metabolic acidosis in the setting of diarrhea, started on oral bicarbonate -40 mEq oral potassium given -Repeat BMP tomorrow -Hold hydrochlorothiazide, continue IV fluids Chronic: Hypothyroidism Hypertension Thank you for allowing us to participate in the care of this pleasant patient. Do not hesitate to contact us with questions. Someone can be reached from the [facility] hospitalist group all hours of the day at [phone] or via perfect serve. Objective - Vital Signs Vital signs: Vital Signs Temp 98.3 F 05/23/23 07:00 Pulse 58 L 05/23/23 07:00 Resp 18 05/23/23 07:00 BP 157/80 05/23/23 07:00 Pulse Ox 92 L 05/23/23 07:00 FiO2 Intake & Output 05/22/23 05/23/23 05/23/23 18:59 06:59 18:59 Intake Total 240 Output Total 0 Balance 0 240 Intake: Oral 240 Output: Emesis 0 Other: # Voids 10 1 # Bowel Movements 4 - Labs CBC & Chem 7: 05/23/23 05:40 05/23/23 05:40 Labs: Abnormal Lab Results - Last 24 Hours (Table) 05/23/23 05/23/23 Range/Units 05:40 05:40 WBC 3.66 L (4.50-10.00) X 10*3/uL RBC 2.88 L (4.10-5.20) X 10*6/uL Hgb 9.1 L (12.0-15.0) d/dL Hct 27.9 L (37.2-46.3) % Plt Count 135 L (140-440) X 10*3/uL Eosinophils # 0.03 L (0.04-0.35) X 10*3/uL Potassium 3.4 L (3.5-5.5) mmol/L Chloride 112 H (96-109) mmol/L Carbon Dioxide 19.5 L (21.6-31.8) mmol/L BUN 6.6 L (9.0-27.0) mg/dL BUN/Creatinine Ratio 7.33 L (12.00-20.00) Ratio Calcium 8.1 L (8.7-10.3) mg/dL AST 41 H (13-35) U/L ALT 46 H (8-44) U/L Total Protein 4.8 L (6.2-8.2) d/dL Albumin 3.2 L (3.8-4.9) d/dL
[2023-05-23] MEDS: SODIUM BICARBONATE TAB 650 MG TAB PO SCH (20:21)
[2023-05-24] MEDS: SODIUM CHLORIDE 0.9% 1,000 ML IV SCH (01:22)
[2023-05-24 06:02] LABS: Basophils % (A) 1 %; Eosinophils # (A) 0.1 k/uL (0-0.7); Eosinophils % (A) 3 %; HGB 9.5 gm/dL (11.4-16.0); Lymphocytes # (A) 1.2 k/uL (1.0-4.8); Lymphocytes % (A) 33 %; MCH 32.4 pg (25.0-35.0); MCHC 32.9 g/dL (31.0-37.0); MCV 98.5 fL (80.0-100.0); Monocytes # (A) 0.2 k/uL (0-1.0); Monocytes % (A) 6 %; Neutrophils % (A) 57 %; Platelet Count 141 k/uL (150-450); RBC 2.94 m/uL (3.80-5.40); RDW 13.5 % (11.5-15.5); WBC 3.6 k/uL (3.8-10.6)
[2023-05-24] MEDS: KETOROLAC 15 MG/ML 1 ML VIAL IVP SCH ×4 (06:30→23:41)
[2023-05-24] MEDS: LEVOTHYROXINE 75 MCG TAB PO SCH (06:30)
[2023-05-24] MEDS: ONDANSETRON 4 MG/2 ML VIAL IVP SCH ×4 (06:30→23:42)
[2023-05-24 06:42] LABS: ALT 40 U/L (4-34); AST 41 U/L (14-36); African American GFR (CKD) 64 (>60 ml/min/1.73 sqM); Albumin 2.8 g/dL (3.5-5.0); Albumin/Globulin Ratio 1.2; Alkaline Phosphatase 55 U/L (38-126); Anion Gap 9 mmol/L; Blood Urea Nitrogen 7 mg/dL (7-17); Calcium 8.3 mg/dL (8.4-10.2); Carbon Dioxide 20 mmol/L (22-30); Chloride 110 mmol/L (98-107); Globulin 2.4 g/dL; Glucose 76 mg/dL (74-99); Non-African American GFR(CKD) 55 (>60 ml/min/1.73 sqM); Potassium 3.8 mmol/L (3.5-5.1); Sodium 139 mmol/L (137-145); Total Bilirubin 0.4 mg/dL (0.2-1.3); Total Protein 5.2 g/dL (6.3-8.2)
[2023-05-24] MEDS: PIPERACILLIN-TAZOBACTAM 3.375 GM in SODIUM CHLORIDE 0.9% 100 ML IVPB SCH ×3 (06:42→23:42)
[2023-05-24] MEDS: FAMOTIDINE 20 MG TAB PO SCH (08:40)
[2023-05-24] MEDS: METOPROLOL SUCCINATE (ER) 50 MG TAB.ER.24H PO SCH (08:40)
[2023-05-24] MEDS: SODIUM BICARBONATE TAB 650 MG TAB PO SCH ×2 (08:41→20:19)
[2023-05-24] MEDS: lisinopriL 20 MG TAB PO SCH (08:41)
[2023-05-24] MEDS: HEPARIN SODIUM,PORCINE 5,000 UNIT/ML 1 ML VIAL SQ SCH ×2 (08:44→20:20)
--- NOTE | 2023-05-24 11:23 | P.PN ---
Subjective Progress Note Date: 05/24/23 Subjective: Seen and examined at bedside. No acute events overnight. Abdominal pain resolved. Nausea resolved. Diarrhea resolved. Pertinent positives and negatives as discussed above, a complete review of systems was performed and all other systems are negative. Vitals Signs Reviewed. General: nontoxic, no distress, appears at stated age Derm: warm, dry Head: atraumatic, normocephalic, symmetric Eyes: EOMI, no lid lag, anicteric sclera Mouth: no lip lesion, mucus membranes moist Cardiovascular: S1S2 reg, no murmur Lungs: CTA bilateral, no rhonchi, no rales , no accessory muscle use Abdominal: soft, nontender, no guarding, no appreciable organomegaly Ext: no gross muscle atrophy, no edema, no contractures Neuro: CN II-XI grossly intact, no focal neuro deficits Psych: Alert, oriented, appropriate affect Data Reviewed Today: Pertinent Labs: WBC 3.6, hemoglobin 9.5, platelet 141, creatinine 1.05, bicarb 20 Imaging: No new imaging Assessment and Plan: Active: Colitis, likely infectious versus inflammatory Suspected Appendicitis Pancytopenia, improving Transaminitis, improving Hypokalemia, resolved Non-anion gap metabolic acidosis, improving -Surgery following, patient remains on IV Zosyn -She may be getting a colonoscopy this inpatient stay -C. diff negative, stool lactoferrin negative -Stool cultures pending -Pancytopenia possibly in the setting of acute illness, continue to monitor, less likely, but it could also be related to IV antibiotics -Transaminitis improving -on oral bicarbonate -Repeat BMP tomorrow -Hold hydrochlorothiazide, continue IV fluids, changed to lactated Ringer Chronic: Hypothyroidism Hypertension Thank you for allowing us to participate in the care of this pleasant patient. Do not hesitate to contact us with questions. Someone can be reached from the [facility] hospitalist group all hours of the day at [phone] or via Pulse [employer]. Objective - Vital Signs Vital signs: Vital Signs Temp 98.2 F 05/24/23 08:00 Pulse 47 L 05/24/23 08:00 Resp 18 05/24/23 08:00 BP 149/70 05/24/23 08:00 Pulse Ox 98 05/24/23 08:00 FiO2 Intake & Output 05/23/23 05/24/23 05/24/23 18:59 06:59 18:59 Intake Total 360 120 Balance 360 120 Intake: Oral 360 120 Other: # Voids 1 1 - Labs CBC & Chem 7: 05/24/23 05:36 05/24/23 05:36 Labs: Abnormal Lab Results - Last 24 Hours (Table) 05/24/23 05/24/23 Range/Units 05:36 05:36 WBC 3.6 L (3.8-10.6) k/uL RBC 2.94 L (3.80-5.40) m/uL Hgb 9.5 L (11.4-16.0) gm/dL Hct 29.0 L (34.0-46.0) % Plt Count 141 L (150-450) k/uL Chloride 110 H (98-107) mmol/L Carbon Dioxide 20 L (22-30) mmol/L Creatinine 1.05 H (0.52-1.04) mg/dL Calcium 8.3 L (8.4-10.2) mg/dL AST 41 H (14-36) U/L ALT 40 H (4-34) U/L Total Protein 5.2 L (6.3-8.2) g/dL Albumin 2.8 L (3.5-5.0) g/dL
--- NOTE | 2023-05-24 11:28 | P.PN ---
Subjective Progress Note Date: 05/24/23 CHIEF COMPLAINT: Colitis HISTORY OF PRESENT ILLNESS: Patient continues to feel better. Nausea has resolv ed with the discontinuation of the Flagyl. She reports her appetite is picking up. Afebrile. WBC is 3.6 Hgb 9.5 platelets 141 sodium 139 potassium 3.8 creatinine 1.05 PHYSICAL EXAM: VITAL SIGNS: Reviewed GENERAL: Well-developed in no acute distress. HEENT: No sclera icterus. Extraocular movements grossly intact. Moist buccal mucosa. Head is atraumatic, normocephalic. Hears conversational speech. No nasal drainage. NECK: Supple without lymphadenopathy. CHEST: Non-labored respirations and equal bilateral excursions. CARDIOVASCULAR: Palpable 2+ radial pulses. ABDOMEN: Soft. Nondistended. MUSCULOSKELETAL: No clubbing or cyanosis. NEUROLOGIC: No focal or lateralizing signs. Cranial nerves II through XII grossly intact. PSYCH: Appropriate affect. Alert and oriented to person, place and time. SKIN: Well perfused. Good skin turgor. ASSESSMENT: 1. Colitis with involvement of the appendix 2. Leukopenia 3. Anemia 4. Diarrhea 5. Right-sided abdominal pain 6. Elevated liver enzymes 7. History of breast cancer 8. Hypokalemia PLAN: -Patient is tentatively scheduled for colonoscopy on , 05/26/[address] Dobbins -Start clear liquid diet tomorrow morning -Continue Zosyn for colitis -Awaiting stool culture results. Depending on culture results patient may require an inpatient colonoscopy -Continue low fiber diet Physician Websphere Architect note has been reviewed by physician. Signing provider agrees with the documented findings, assessment, and plan of care. Objective - Vital Signs Vital signs: Vital Signs Temp 98.2 F 05/24/23 08:00 Pulse 47 L 05/24/23 08:00 Resp 18 05/24/23 08:00 BP 149/70 05/24/23 08:00 Pulse Ox 98 05/24/23 08:00 FiO2 Intake & Output 05/23/23 05/24/23 05/24/23 18:59 06:59 18:59 Intake Total 360 120 Balance 360 120 Intake: Oral 360 120 Other: # Voids 1 1 - Labs CBC & Chem 7: 05/24/23 05:36 05/24/23 05:36 Labs: Abnormal Lab Results - Last 24 Hours (Table) 05/24/23 05/24/23 Range/Units 05:36 05:36 WBC 3.6 L (3.8-10.6) k/uL RBC 2.94 L (3.80-5.40) m/uL Hgb 9.5 L (11.4-16.0) gm/dL Hct 29.0 L (34.0-46.0) % Plt Count 141 L (150-450) k/uL Chloride 110 H (98-107) mmol/L Carbon Dioxide 20 L (22-30) mmol/L Creatinine 1.05 H (0.52-1.04) mg/dL Calcium 8.3 L (8.4-10.2) mg/dL AST 41 H (14-36) U/L ALT 40 H (4-34) U/L Total Protein 5.2 L (6.3-8.2) g/dL Albumin 2.8 L (3.5-5.0) g/dL
[2023-05-24] MEDS: LACTATED RINGERS 1,000 ML IV SCH ×2 (13:30→20:20)
[2023-05-25] MEDS: KETOROLAC 15 MG/ML 1 ML VIAL IVP SCH ×2 (06:27→13:00)
[2023-05-25] MEDS: ONDANSETRON 4 MG/2 ML VIAL IVP SCH ×4 (06:28→23:46)
[2023-05-25] MEDS: LACTATED RINGERS 1,000 ML IV SCH ×3 (06:31→21:47)
[2023-05-25] MEDS: LEVOTHYROXINE 75 MCG TAB PO SCH (06:31)
[2023-05-25] MEDS: PIPERACILLIN-TAZOBACTAM 3.375 GM in SODIUM CHLORIDE 0.9% 100 ML IVPB SCH ×3 (06:32→21:47)
[2023-05-25] MEDS ORDERED: PEG 3350 (236 GM/BTL) + LYTES 4,000 ML BOTTLE PO ONE ×2 (09:03→10:14)
[2023-05-25] MEDS: SODIUM BICARBONATE TAB 650 MG TAB PO SCH ×2 (09:33→21:45)
[2023-05-25] MEDS: FAMOTIDINE 20 MG TAB PO SCH (09:33)
[2023-05-25] MEDS: lisinopriL 20 MG TAB PO SCH (09:33)
[2023-05-25] MEDS: METOPROLOL SUCCINATE (ER) 50 MG TAB.ER.24H PO SCH (09:33)
[2023-05-25] MEDS: HEPARIN SODIUM,PORCINE 5,000 UNIT/ML 1 ML VIAL SQ SCH ×2 (09:36→21:45)
--- NOTE | 2023-05-25 11:27 | XR ---
EXAMINATION TYPE: XR abdomen 2V DATE OF EXAM: 05/25/2023 COMPARISON: NONE HISTORY: Pain TECHNIQUE: One view abdominal series FINDINGS: The osseous structures are intact. The bowel gas pattern is nonspecific. Scoliosis with multilevel s evere degenerative disc disease and postsurgical change vertebral column. Diffuse osteopenia with óscar ateral hip arthropathy. Osteitis pubis condensans. Surgical clips in the right upper quadrant. IMPRESSION: 1. Nonspecific abdomen. No diagnostic evidence of obstruction.
--- NOTE | 2023-05-25 11:33 | P.PN ---
Subjective Progress Note Date: 05/25/23 Subjective: Seen and examined at bedside. No acute events overnight. She has minimal right-sided abdominal pain today. Denies any significant nausea, vomiting, urinary or bowel complaints. Pertinent positives and negatives as discussed above, a complete review of systems was performed and all other systems are negative. Vitals Signs Reviewed. General: nontoxic, no distress, appears at stated age Derm: warm, dry Head: atraumatic, normocephalic, symmetric Eyes: EOMI, no lid lag, anicteric sclera Mouth: no lip lesion, mucus membranes moist Cardiovascular: S1S2 reg, no murmur Lungs: CTA bilateral, no rhonchi, no rales , no accessory muscle use Abdominal: soft, nontender, no guarding, no appreciable organomegaly Ext: no gross muscle atrophy, no edema, no contractures Neuro: CN II-XI grossly intact, no focal neuro deficits Psych: Alert, oriented, appropriate affect Data Reviewed Today: Pertinent Labs: Stool culture did not show any salmonella or Shigella, no E. coli 0157: H7 Imaging: No new imaging Assessment and Plan: Active: Colitis, likely infectious versus inflammatory Suspected Appendicitis Pancytopenia, improving Transaminitis, improving Hypokalemia, resolved Non-anion gap metabolic acidosis, improving -Surgery following, patient remains on IV Zosyn -Pending colonoscopy tomorrow -Pancytopenia possibly in the setting of acute illness, continue to monitor, less likely, but it could also be related to IV antibiotics -Transaminitis improving -on oral bicarbonate -Repeat CBC and CMP tomorrow -Hold hydrochlorothiazide, continue IV fluids Chronic: Hypothyroidism Hypertension Thank you for allowing us to participate in the care of this pleasant patient. Do not hesitate to contact us with questions. Someone can be reached from the [facility] hospitalist group all hours of the day at [phone] or via [employer]. Objective - Vital Signs Vital signs: Vital Signs Temp 98.2 F 05/25/23 08:00 Pulse 56 L 05/25/23 08:00 Resp 16 05/25/23 09:36 BP 130/77 05/25/23 08:00 Pulse Ox 96 05/25/23 08:00 FiO2 Intake & Output 05/24/23 05/25/23 05/25/23 18:59 06:59 18:59 Intake Total 480 Balance 480 Intake: Oral 480 Other: # Voids 1 2 - Labs CBC & Chem 7: 05/24/23 05:36 05/24/23 05:36 Labs: Microbiology - Last 24 Hours (Table) 05/22/23 18:15 Stool Culture - Preliminary Stool
[2023-05-25] MEDS: SIMETHICONE 40 MG/0.6 ML DROPS 2,000 MG/30 ML BOTTLE PO SCH ×3 (13:10→21:45)
[2023-05-25] MEDS ORDERED: LACTULOSE 20 GM/30 ML CUP PO ONE (13:30)
--- NOTE | 2023-05-25 13:42 | P.PN ---
Subjective Progress Note Date: 05/25/23 CHIEF COMPLAINT: Colitis HISTORY OF PRESENT ILLNESS: Patient does complain of abdominal pain on both side s abdomen more right greater than left. She does feel bloated. She does have nausea but reports that it's less. She does complain of epigastric discomfort. She is concerned that she may not feel the tolerate the full GoLYTELY bowel prep. Abdominal x-ray ordered and has shown a nonspecific abdomen. No evidence of obstruction. Afebrile. WBC 3.6 Hgb 9.5 platelets 141 sodium is 139 potassium 3.8 creatinine 1.05 stool cultures preliminary but shows no evidence of Salmonella Shigella or E. coli PHYSICAL EXAM: VITAL SIGNS: Reviewed GENERAL: Well-developed in no acute distress. HEENT: No sclera icterus. Extraocular movements grossly intact. Moist buccal mucosa. Head is atraumatic, normocephalic. Hears conversational speech. No nasal drainage. NECK: Supple without lymphadenopathy. CHEST: Non-labored respirations and equal bilateral excursions. CARDIOVASCULAR: Palpable 2+ radial pulses. ABDOMEN: Soft. Nondistended. MUSCULOSKELETAL: No clubbing or cyanosis. NEUROLOGIC: No focal or lateralizing signs. Cranial nerves II through XII grossly intact. PSYCH: Appropriate affect. Alert and oriented to person, place and time. SKIN: Well perfused. Good skin turgor. ASSESSMENT: 1. Colitis with involvement of the appendix 2. Leukopenia 3. Anemia 4. Diarrhea 5. Right-sided abdominal pain 6. Elevated liver enzymes 7. History of breast cancer 8. Hypokalemia PLAN: -Patient is scheduled for EGD and colonoscopy on , 05/26/[address] Dobbins -Start 2 L of GoLYTELY bowel prep, we'll give lactulose and milk of magnesia as part of bowel prep -Start clear liquid diet today -Nothing by mouth after midnight -Continue Zosyn for colitis -Discontinue Toradol due to mildly elevated creatinine. IV fluids per medicine service. Physician Database Security Administrator note has been reviewed by physician. Signing provider agrees with the documented findings, assessment, and plan of care. Objective - Vital Signs Vital signs: Vital Signs Temp 98.2 F 05/25/23 08:00 Pulse 56 L 05/25/23 08:00 Resp 16 05/25/23 08:00 BP 130/77 05/25/23 08:00 Pulse Ox 96 05/25/23 08:00 FiO2 Intake & Output 05/24/23 05/25/23 05/25/23 18:59 06:59 18:59 Intake Total 480 Balance 480 Intake: Oral 480 Other: # Voids 1 2 - Labs CBC & Chem 7: 05/24/23 05:36 05/24/23 05:36 Labs: Microbiology - Last 24 Hours (Table) 05/22/23 18:15 Stool Culture - Preliminary Stool
[2023-05-25] MEDS ORDERED: MAGNESIUM HYDROXIDE 2,400 MG/30 ML CUP PO SCH (13:45)
[2023-05-26] MEDS: LACTATED RINGERS 1,000 ML IV SCH ×2 (02:53→16:15)
[2023-05-26] MEDS: LEVOTHYROXINE 75 MCG TAB PO SCH (05:10)
[2023-05-26] MEDS: ONDANSETRON 4 MG/2 ML VIAL IVP SCH ×3 (05:10→17:51)
[2023-05-26] MEDS: ACETAMINOPHEN TAB 325 MG TAB PO PRN (05:59)
[2023-05-26] MEDS: PIPERACILLIN-TAZOBACTAM 3.375 GM in SODIUM CHLORIDE 0.9% 100 ML IVPB SCH ×2 (06:00→16:19)
[2023-05-26] MEDS ORDERED: PROPOFOL 10 MG/ML 20 ML VIAL IV ONE (07:57)
[2023-05-26] MEDS ORDERED: SODIUM CHLORIDE 0.9% 1,000 ML IV ONE (07:57)
[2023-05-26] MEDS ORDERED: LIDOCAINE 2% INJ 20 MG/ML (2 ML VIAL) ONE (07:57)
--- NOTE | 2023-05-26 08:11 | P.PCN ---
Date of Procedure: 05/26/23 Description of Procedure: PREOPERATIVE DIAGNOSIS: Gastritis Epigastric abdominal pain POSTOPERATIVE DIAGNOSIS: Gastritis with bleeding Diaphragmatic hiatal hernia Esophagitis OPERATION: Esophagogastroduodenoscopy with biopsies of esophagus, antrum and duodenum SURGEON: Sally Dobbins MD ANESTHESIA: MAC. INDICATIONS: The patient is a 68-year-old female who presents with gastritis and epigastric pain. Benefits and risks of the procedure were described. Informed consent was obtained. DESCRIPTION: The patient was brought into the endoscopy suite and laid in the left lateral decubitus position. An Olympus gastroscope was passed along the posterior oropharynx down to the distal esophagus where the squamocolumnar junction was encountered at 36 cm from the incisors. The stomach was entered and no bile reflux was found. Additional findings are listed below. Biopsies with cold forceps were obtained of the antrum. The first through third portion of the duodenum was examined. Retroflexion of the scope confirmed Hill grade 3 lower esophageal valve. The squamocolumnar junction demonstrated LA grade B erosive esophagitis. The stomach was desufflated. The patient tolerated the procedure well. FINDINGS: Squamocolumnar junction 36 cm from the incisors. Diaphragmatic hiatus at 40 cm. Hiatal hernia, 4 cm Hill grade 3 lower esophageal valve. LA grade B erosive esophagitis. Biopsies obtained of the duodenum. Esophagitis and biopsies obtained, distal esophagitis Chronic gastritis bleeding Biopsies obtained of the antrum RECOMMENDATIONS: Upper endoscopy as needed.
--- NOTE | 2023-05-26 08:33 | P.PCN ---
Date of Procedure: 05/26/23 Description of Procedure: PREOPERATIVE DIAGNOSIS: Colitis POSTOPERATIVE DIAGNOSIS: External hemorrhoids. Sigmoid stricture OPERATION: Colonoscopy to the sigmoid colon. SURGEON: Sally Dobbins MD. ANESTHESIA: MAC. INDICATIONS: The patient is a 68-year-old female who presents with colitis and change in bowel habits. Her last colonoscopy was more than 10 years ago. Benefits and risks were described and informed consent was obtained. DESCRIPTION OF PROCEDURE: The patient had undergone a GoLYTELY prep with lactulose and milk of magnesia. She had been brought into the operating room and laid in the left lateral decubitus position. After adequate intravenous sedation, the rectum was examined with 2% lidocaine jelly. External hemorrhoids were encountered. The rectal tone was loose. No lesions were palpated in the rectal vault. A pediatric Olympus colonoscope was advanced along the rectum to a very tortuous sigmoid colon. The scope was then exchanged for a pediatric colonoscope. Despite multiple maneuvers, the sigmoid colon had severe tortuosity including stricture preventing further advancement of scope. The scope was passed to 30 cm from the anal verge. No evidence of polyps were identified. As the patient posed high risk for perforation with persistence of the procedure, the procedure was discontinued. The colon was desufflated. The patient had tolerated the procedure well. Withdrawal time was over 6 minutes. FINDINGS: [place] preparation quality scale 1 (1-5) Tortuous sigmoid colon with stricture preventing further advancement of the scope. External prolapsed hemorrhoids, grade 3 Scope advanced to sigmoid colon at 30 cm from stricture No arteriovenous malformations. No adenomatous polyps. No focal colitis. RECOMMENDATIONS: Completion of colonoscopy evaluation with barium enema. Plan - Discharge Summary Discharge Rx Participant: No New Discharge Prescriptions: No Action lisinopriL 40 mg PO DAILY LORazepam [Ativan] 0.5 mg PO BID PRN PRN Reason: Anxiety Sucralfate [Carafate] 1 gm PO QID PRN PRN Reason: GI UPSET Famotidine 40 mg PO BID hydroCHLOROthiazide 25 mg PO DAILY Oxybutynin Xl [Ditropan XL] 5 mg PO DAILY Metoprolol Succinate (ER) [Toprol Xl] 50 mg PO DAILY Levothyroxine Sodium [Synthroid] 75 mcg PO DAILY Discharge Medication List Famotidine 40 mg PO BID 05/20/23 [History] LORazepam [Ativan] 0.5 mg PO BID PRN 05/20/23 [History] Levothyroxine Sodium [Synthroid] 75 mcg PO DAILY 05/20/23 [History] Metoprolol Succinate (ER) [Toprol Xl] 50 mg PO DAILY 05/20/23 [History] Oxybutynin Xl [Ditropan XL] 5 mg PO DAILY 05/20/23 [History] Sucralfate [Carafate] 1 gm PO QID PRN 05/20/23 [History] hydroCHLOROthiazide 25 mg PO DAILY 05/20/23 [History] lisinopriL 40 mg PO DAILY 05/20/23 [History] Follow up Appointment(s)/Referral(s): None,Stated [Primary Care Provider] - 1-2 days Discharge/Stand Alone Forms: Who Do I Call?, PH Area PCPs
--- NOTE | 2023-05-26 09:25 | P.PN ---
Progress Note - Text Progress Note Date: 05/26/23 Daughter Patricia Bowles called and updated on findings.
[2023-05-26 10:38] LABS: Basophils % (A) 0 %; Eosinophils # (A) 0.1 k/uL (0-0.7); Eosinophils % (A) 2 %; HCT 29.4 % (34.0-46.0); HGB 9.8 gm/dL (11.4-16.0); Lymphocytes # (A) 1.2 k/uL (1.0-4.8); Lymphocytes % (A) 30 %; MCH 32.2 pg (25.0-35.0); MCHC 33.3 g/dL (31.0-37.0); MCV 96.9 fL (80.0-100.0); Mean Platelet Volume 7.5; Monocytes # (A) 0.2 k/uL (0-1.0); Monocytes % (A) 6 %; Neutrophils # (A) 2.5 k/uL (1.3-7.7); Neutrophils % (A) 60 %; Platelet Count 168 k/uL (150-450); RBC 3.03 m/uL (3.80-5.40); WBC 4.2 k/uL (3.8-10.6)
[2023-05-26 10:49] LABS: African American GFR (CKD) 78 (>60 ml/min/1.73 sqM); Anion Gap 4 mmol/L; Blood Urea Nitrogen 4 mg/dL (7-17); Calcium 8.6 mg/dL (8.4-10.2); Carbon Dioxide 27 mmol/L (22-30); Chloride 109 mmol/L (98-107); Glucose 85 mg/dL (74-99); Non-African American GFR(CKD) 68 (>60 ml/min/1.73 sqM); Potassium 4.2 mmol/L (3.5-5.1); Sodium 140 mmol/L (137-145)
[2023-05-26] MEDS: HEPARIN SODIUM,PORCINE 5,000 UNIT/ML 1 ML VIAL SQ SCH ×2 (13:23→21:43)
[2023-05-26] MEDS: lisinopriL 20 MG TAB PO SCH (13:23)
[2023-05-26] MEDS: FAMOTIDINE 20 MG TAB PO SCH (13:23)
[2023-05-26] MEDS: METOPROLOL SUCCINATE (ER) 50 MG TAB.ER.24H PO SCH (13:23)
--- NOTE | 2023-05-26 13:27 | P.PN ---
Subjective Progress Note Date: 05/26/23 Subjective: Seen and examined at bedside. No acute events overnight. Pertinent positives and negatives as discussed above, a complete review of systems was performed and all other systems are negative. Vitals Signs Reviewed. General: nontoxic, no distress, appears at stated age Derm: warm, dry Head: atraumatic, normocephalic, symmetric Eyes: EOMI, no lid lag, anicteric sclera Mouth: no lip lesion, mucus membranes moist Cardiovascular: S1S2 reg, no murmur Lungs: CTA bilateral, no rhonchi, no rales , no accessory muscle use Abdominal: soft, nontender, no guarding, no appreciable organomegaly Ext: no gross muscle atrophy, no edema, no contractures Neuro: CN II-XI grossly intact, no focal neuro deficits Psych: Alert, oriented, appropriate affect Data Reviewed Today: Pertinent Labs: Hemoglobin 9.8, sodium 140, potassium 4.2, creatinine 0.89 Imaging: No new imaging Assessment and Plan: Colitis, likely infectious versus inflammatory Suspected Appendicitis Normocytic anemia Pancytopenia, resolved Transaminitis, improving Hypokalemia, resolved Non-anion gap metabolic acidosis, resolved -Surgery following, patient remains on IV Zosyn -EGD showed erosive esophagitis, chronic gastritis -Colonoscopy showed external prolapsed hemorrhoids, tortuous sigmoid colon with stricture, patient needs barium enema -Transaminitis improving -Oral bicarbonate discontinued -IV fluids discontinued, encourage oral intake -Hydrochlorothiazide restarted Chronic: Hypothyroidism Hypertension Thank you for allowing us to participate in the care of this pleasant patient. Do not hesitate to contact us with questions. Someone can be reached from the [facility] hospitalist group all hours of the day at [phone] or via perfect serve. Objective - Vital Signs Vital signs: Vital Signs Temp 98.1 F 05/26/23 02:17 Pulse 61 05/26/23 02:17 Resp 14 05/26/23 02:17 BP 123/71 05/26/23 02:17 Pulse Ox 97 05/26/23 02:17 FiO2 Intake & Output 05/25/23 05/26/23 05/26/23 18:59 06:59 18:59 Intake Total 1999 200 Balance 1999 200 Intake: IV 200 Oral 1999 Other: # Voids 3 1 - Labs CBC & Chem 7: 05/26/23 10:25 05/26/23 10:25 Labs: Abnormal Lab Results - Last 24 Hours (Table) 05/26/23 05/26/23 Range/Units 10:25 10:25 RBC 3.03 L (3.80-5.40) m/uL Hgb 9.8 L (11.4-16.0) gm/dL Hct 29.4 L (34.0-46.0) % Chloride 109 H (98-107) mmol/L BUN 4 L (7-17) mg/dL Microbiology - Last 24 Hours (Table) 05/22/23 18:15 Stool Culture - Final Stool
[2023-05-26] MEDS: SODIUM BICARBONATE TAB 650 MG TAB PO SCH (13:32)
[2023-05-26] MEDS: SIMETHICONE 40 MG/0.6 ML DROPS 2,000 MG/30 ML BOTTLE PO SCH ×4 (13:32→21:44)
--- NOTE | 2023-05-26 16:16 | XR ---
EXAMINATION TYPE: XR abdomen 1V DATE OF EXAM: 05/26/2023 1:51 PM CLINICAL INDICATION:Female, 68 years old with history of Incomplete colonoscopy; [facility] COMPARISON: 05/25/2023 TECHNIQUE: One radiographic view of the abdomen was obtained. FINDINGS: The bowel gas pattern is nonspecific without dilated loops of small or large bowel. There i s no evidence for organomegaly or pneumoperitoneum. The osseous structures are intact. No abnormal calcifications are present. Fecal material and gas are demonstrated throughout the colon and rectum. Right upper quadrant course significance. L5-S1 fixation changes hardware appears intact. Gaseous di lation throughout the colon. No evidence for obstruction. IMPRESSION: Nonspecific bowel gas pattern without radiographic evidence for acute process.
[2023-05-27] MEDS: ONDANSETRON 4 MG/2 ML VIAL IVP SCH ×2 (00:09→05:56)
[2023-05-27] MEDS: PIPERACILLIN-TAZOBACTAM 3.375 GM in SODIUM CHLORIDE 0.9% 100 ML IVPB SCH ×2 (00:10→05:59)
[2023-05-27] MEDS: ACETAMINOPHEN TAB 325 MG TAB PO PRN (03:39)
[2023-05-27 03:52] VITALS: BP 137/62; PULSE 61; RESP 16; TEMP 97.8
[2023-05-27] MEDS: LEVOTHYROXINE 75 MCG TAB PO SCH (05:56)
[2023-05-27] MEDS ORDERED: hydroCHLOROthiazide 25 MG TAB PO SCH (09:00)
[2023-05-27] MEDS: lisinopriL 20 MG TAB PO SCH (09:36)
[2023-05-27] MEDS: SIMETHICONE 40 MG/0.6 ML DROPS 2,000 MG/30 ML BOTTLE PO SCH (09:37)
[2023-05-27] MEDS: FAMOTIDINE 20 MG TAB PO SCH (09:37)
[2023-05-27] MEDS: METOPROLOL SUCCINATE (ER) 50 MG TAB.ER.24H PO SCH (09:37)
[2023-05-27] MEDS: HEPARIN SODIUM,PORCINE 5,000 UNIT/ML 1 ML VIAL SQ SCH (09:37)
--- NOTE | 2023-05-27 11:58 | FL ---
EXAMINATION TYPE: FL barium enema DATE OF EXAM: 05/27/2023 COMPARISON: CT 05/21/2023 HISTORY: 68-year-old female sigmoid stricture, unable to pass colonoscope. TECHNIQUE: A double contrast exam was intended. Due to difficulty in passing contrast along the mid to distal sigmoid colon, we did not administer any air. A single contrast barium enema study is perfo rmed. A total of 2 minutes 21 seconds of fluoroscopic time was utilized during procedure and 51 images obta ined. Total dose area product (DAP) in uGy*m?, mGy*cm? (or similar): 15. FINDINGS: Real Estate Asset Manager view of the abdomen shows overall non-obstructive bowel gas pattern. There are mone cystectomy clips. There is lumbar fusion hardware. Degenerated levoconvex scoliosis lumbar spine. Mil d degenerative changes both hips. With contrast administered, there is initial obstruction to the passage of contrast more proximally i n the mid to distal sigmoid. Progressive distention of the rectum but with eventual passage across th e narrowing. The narrowing spans approximately 5 to 7 cm the lack of air contrast limits detailed muc osal assessment but no additional obvious annular constricting lesion seen. Scattered sigmoid colonic diverticulosis is demonstrated. IMPRESSION: 1. Barium enema. Exam converted to single contrast. We did not administer any air due to the moderate obstruction at the distal sigmoid colon with stricture spanning 5 to 7 cm in length. 2. The lack of air contrast limits detailed assessment. No obvious additional annular constricting le joe. 3. Sigmoid diverticulosis.
--- NOTE | 2023-05-27 13:01 | P.CRDCN ---
History of Present Illness History of present illness: HISTORY OF PRESENT ILLNESS: This is a 68 year old female with a past medical history significant for hypothyroidism, GERD, and hypertension. Patient does not follow with a optical fabrication technician. We have been asked to see the patient in consultation for cardiac risk assessment. Patient examined at the bedside. Patient presented to the ER with abdominal pain. She states this has been going on for awhile which she initially attributed to increased stress. Patient denies any chest pain or pressure. Denies SOB. She states she is fairly inactive. She is scheduled to undergo outpatient colectomy with Dr. Dobbins secondary to sigmoid stricture. * EKG reveals sinus mechanism with no signs of acute ischemia * Laboratory data: WBC 4.2. Hemoglobin 9.8. Platelet count 168. Sodium 140. Potassium 4.2. BUN 4. Creatinine 0.89. * Current home cardiac medications include lisinopril 40 mg daily, metoprolol succinate 50 mg daily, hydrochlorothiazide 25 mg daily REVIEW OF SYSTEMS: At the time of my exam: CONSTITUTIONAL: Denies fever or chills. HEENT: Denies blurred vision, vision changes, or eye pain. Denies hemoptysis CARDIOVASCULAR: Denies chest pain. Denies orthopnea. Denies PND. Denies palpitations RESPIRATORY: Denies shortness of breath. GASTROINTESTINAL: Denies abdominal pain. Denies nausea or vomiting. HEMATOLOGIC: Denies bleeding disorders. GENITOURINARY: Denies any blood in urine. SKIN: Denies pruitis. Denies rash. PHYSICAL EXAM: VITAL SIGNS: Reviewed. GENERAL: Well-developed in no acute distress. HEENT: Head is normocephalic. Pupils are equal, round. Sclerae anicteric. Mucous membranes of the mouth are moist. Neck supple. No JVD or thyromegaly LUNGS: Respirations even and unlabored. Lungs essentially clear to auscultation bilaterally. HEART: Regular rate and rhythm. S1 and S2 heard. ABDOMEN: Soft. Nondistended. Nontender. EXTREMITIES: Normal range of motion. No clubbing or cyanosis. Peripheral pulses intact. Trace bilateral lower extremity edema NEUROLOGIC: Awake and alert. Oriented x 3. ASSESSMENT: Abdominal pain Sigmoid stricture, awaiting outpatient colectomy with Dr. Dobbins Hypertension History of breast cancer, 12 years ago GERD PLAN: Obtain 2D echo to assess cardiac structure and function Continue current cardiac medications Patient may be discharged home from a cardiac standpoint She will be scheduled for outpatient stress testing early next week Patient to follow up post stress test with Dr. Mares Nurse practitioner note has been reviewed by physician. Signing provider agrees with the documented findings, assessment, and plan of care. Past Medical History Past Medical History: Cancer, GERD/Reflux, Hypertension, Thyroid Disorder Additional Past Medical History / Comment(s): breast History of Any Multi-Drug Resistant Organisms: None Reported Past Surgical History: Section, Cholecystectomy, Hysterectomy, Tubal Ligation Past Psychological History: No Psychological Hx Reported Smoking Status: Never smoker Past Alcohol Use History: Occasional Past Drug Use History: Marijuana Medications and Allergies Home Medications Medication Instructions Recorded Confirmed Type Famotidine 40 mg PO BID 05/20/23 05/20/23 History LORazepam [Ativan] 0.5 mg PO BID PRN 05/20/23 05/20/23 History Levothyroxine Sodium [Synthroid] 75 mcg PO DAILY 05/20/23 05/20/23 History Metoprolol Succinate (ER) [Toprol 50 mg PO DAILY 05/20/23 05/20/23 History Xl] Oxybutynin Xl [Ditropan XL] 5 mg PO DAILY 05/20/23 05/20/23 History Sucralfate [Carafate] 1 gm PO QID PRN 05/20/23 05/20/23 History hydroCHLOROthiazide 25 mg PO DAILY 05/20/23 05/20/23 History lisinopriL 40 mg PO DAILY 05/20/23 05/20/23 History Allergies Allergy/AdvReac Type Severity Reaction Status Date / Time meperidine [From Demerol] Allergy Nausea & Verified 05/20/23 23:09 Vomiting Penicillins Allergy Nausea & Verified 05/20/23 23:09 Vomiting Physical Exam Vitals: Vital Signs Temp Pulse Resp BP BP Pulse Ox 05/27/23 02:46 97.8 F 61 16 137/62 96 05/26/23 20:41 97.3 F L 64 15 138/80 99 05/26/23 14:30 98.9 F 53 L 16 152/89 96 Intake and Output 05/26/23 05/27/23 05/27/23 22:59 06:59 14:59 Other: # Voids 3 1 Results 05/26/23 10:25 05/26/23 10:25 Current Medications Generic Name Dose Route Start Last Admin Trade Name Keithq PRN Reason Stop Dose Admin Acetaminophen 650 mg 05/26/23 05:53 05/27/23 03:39 Acetaminophen Tab 325 Mg Tab PO 650 mg Q6HR PRN Administration Fever and/ or Pain Famotidine 20 mg 05/24/23 09:00 05/27/23 09:37 Famotidine 20 Mg Tab PO 20 mg DAILY AMANDA Administration Heparin Sodium (Porcine) 5,000 unit 05/22/23 21:00 05/27/23 09:37 Heparin Sodium,Porcine 5,000 Unit/Ml 1 Ml Vial SQ 5,000 unit Q12HR AMANDA Administration Hydrochlorothiazide 25 mg 05/27/23 09:00 05/27/23 09:37 Hydrochlorothiazide 25 Mg Tab PO 25 mg DAILY AMANDA Administration Piperacillin Sod/Tazobactam 100 mls @ 25 mls/hr 05/21/23 07:00 05/27/23 05:59 Sod 3.375 gm/ Sodium Chloride IVPB 25 mls/hr Q8H AMANDA Administration Protocol Levothyroxine Sodium 75 mcg 05/21/23 06:30 05/27/23 05:56 Levothyroxine 75 Mcg Tab PO 75 mcg DAILY@0630 AMANDA Administration Lisinopril 40 mg 05/22/23 09:00 05/27/23 09:36 Lisinopril 20 Mg Tab PO 40 mg DAILY AMANDA Administration Metoprolol Succinate 50 mg 05/21/23 09:00 05/27/23 09:37 Metoprolol Succinate (Er) 50 Mg Tab.Er.24h PO 50 mg DAILY AMANDA Administration Morphine Sulfate 4 mg 05/20/23 23:05 Morphine Sulfate 4 Mg/Ml Syringe IV Q4HR PRN Severe Pain (Scale 7 to 10) Naloxone HCl 0.2 mg 05/20/23 22:59 Naloxone 0.4 Mg/Ml 1 Ml Vial IV Q2M PRN Opioid Reversal Ondansetron HCl 4 mg 05/22/23 14:15 05/27/23 05:56 Ondansetron 4 Mg/2 Ml Vial IVP 4 mg Q6HR AMANDA Administration Simethicone 40 mg 05/25/23 13:00 05/27/23 09:37 Simethicone 40 Mg/0.6 Ml Drops 2,000 Mg/30 Ml Bottle PO 40 mg QID AMANDA Administration Trimethobenzamide HCl 200 mg 05/22/23 21:13 05/23/23 09:10 Trimethobenzamide 100 Mg/Ml 2 Ml Vial IM 200 mg Q6HR PRN Administration Nausea Intake and Output 05/26/23 05/27/23 05/27/23 22:59 06:59 14:59 Other: # Voids 3 1 05/26/23 10:25 05/26/23 10:25
--- NOTE | 2023-05-27 14:11 | P.PN ---
Subjective Progress Note Date: 05/27/23 Subjective: Seen and examined at bedside. No acute events overnight. Pertinent positives and negatives as discussed above, a complete review of systems was performed and all other systems are negative. Vitals Signs Reviewed. General: nontoxic, no distress, appears at stated age Derm: warm, dry Head: atraumatic, normocephalic, symmetric Eyes: EOMI, no lid lag, anicteric sclera Mouth: no lip lesion, mucus membranes moist Cardiovascular: S1S2 reg, no murmur Lungs: CTA bilateral, no rhonchi, no rales , no accessory muscle use Abdominal: soft, nontender, no guarding, no appreciable organomegaly Ext: no gross muscle atrophy, no edema, no contractures Neuro: CN II-XI grossly intact, no focal neuro deficits Psych: Alert, oriented, appropriate affect Data Reviewed Today: Pertinent Labs: No new labs Imaging: No new imaging Assessment and Plan: Colitis, with strictures Normocytic anemia Pancytopenia, resolved Transaminitis, improving Hypokalemia, resolved Non-anion gap metabolic acidosis, resolved -Discussed management with surgery, patient likely to get a colectomy -Cardiology was consulted for cardiac clearance, echocardiogram to be done inpatient, outpatient stress test -Patient care colectomy after this hospitalization Chronic: Hypothyroidism Hypertension Patient is medically optimized for discharge Thank you for allowing us to participate in the care of this pleasant patient. Do not hesitate to contact us with questions. Someone can be reached from the [facility] hospitalist group all hours of the day at [phone] or via perfect serve. Objective - Vital Signs Vital signs: Vital Signs Temp 97.8 F 05/27/23 02:46 Pulse 61 05/27/23 02:46 Resp 16 05/27/23 02:46 BP 137/62 05/27/23 02:46 Pulse Ox 96 05/27/23 02:46 FiO2 Intake & Output 05/26/23 05/27/23 05/27/23 18:59 06:59 18:59 Intake Total 200 Balance 200 Weight 74.389 kg Intake: IV 200 Other: # Voids 3 1 - Labs CBC & Chem 7: 05/26/23 10:25 05/26/23 10:25
--- NOTE | 2023-05-27 15:02 | P.DS ---
Providers Date of admission: 05/22/23 18:25 Expected date of discharge: 05/27/23 Attending physician: Sally Dobbins Consults: 05/20/23 23:05 Consult Physician Urgent Consulting Provider: Blayne Avila Consult Reason/Comments: acute appendicitis, preop Do you want consulting provider notified?: Yes 05/27/23 12:09 Consult Physician Routine Consulting Provider: Tony Mares Consult Reason/Comments: cardiac risk assessment Do you want consulting provider notified?: Yes Primary care physician: Stated None Hospital Course: Discharge diagnosis 1. Colitis 2. Sigmoid stricture likely due to diverticulitis 3. External hemorrhoids 4. Gastritis with bleeding 5. Diaphragmatic hiatal hernia 6. Esophagitis Hospital course The patient is a 68 year old female with past history of breast cancer including bilateral breast reconstruction who comes in with a 2 day history of acute onset right-sided abdominal pain. Patient presented to her local hospital and trans ferred to facility for colitis and possible appendicitis. Patient's symptoms are likely due to colitis and not appendicitis. Patient did have colonoscopy completed with results showing a sigmoid stricture and external hemorrhoids. She then had a barium enema completed which did reveal moderate obstruction at the distal sigmoid colon with stricture. Patient will eventually require a colectomy. This will be completed outpatient. She also had EGD during this admission which had shown gastritis with bleeding, diaphragmatic hiatal hernia and esophagitis. Patient is tolerating diet. She has completed antibiotic treatment during her hospitalization. She'll complete her cardiac clearance for surgery in the outpatient setting. Patient is afebrile. Tolerating diet. Pain controlled. She has been up and ambulating. She is stable for discharge. Physician Senior Dentist note has been reviewed by physician. Signing provider agrees with the documented findings, assessment, and plan of care. Patient Condition at Discharge: Stable Plan - Discharge Summary Discharge Rx Participant: No New Discharge Prescriptions: New Simethicone 40 mg/0.6 ml Drops [Mylicon Drops] 40 mg PO QID ml Continue lisinopriL 40 mg PO DAILY LORazepam [Ativan] 0.5 mg PO BID PRN PRN Reason: Anxiety Sucralfate [Carafate] 1 gm PO QID PRN PRN Reason: GI UPSET Famotidine 40 mg PO BID hydroCHLOROthiazide 25 mg PO DAILY Oxybutynin Xl [Ditropan XL] 5 mg PO DAILY Metoprolol Succinate (ER) [Toprol XL] 50 mg PO DAILY Levothyroxine Sodium [Synthroid] 75 mcg PO DAILY Discharge Medication List Famotidine 40 mg PO BID 05/20/23 [History] LORazepam [Ativan] 0.5 mg PO BID PRN 05/20/23 [History] Levothyroxine Sodium [Synthroid] 75 mcg PO DAILY 05/20/23 [History] Metoprolol Succinate (ER) [Toprol XL] 50 mg PO DAILY 05/20/23 [History] Oxybutynin Xl [Ditropan XL] 5 mg PO DAILY 05/20/23 [History] Sucralfate [Carafate] 1 gm PO QID PRN 05/20/23 [History] hydroCHLOROthiazide 25 mg PO DAILY 05/20/23 [History] lisinopriL 40 mg PO DAILY 05/20/23 [History] Simethicone 40 mg/0.6 ml Drops [Mylicon Drops] 40 mg PO QID ml 05/27/23 [Rx] Follow up Appointment(s)/Referral(s): Tony Mares MD [STAFF PHYSICIAN] - 05/31/23 4:00 pm None,Stated [Primary Care Provider] - 1-2 days Sally Dobbins MD [STAFF PHYSICIAN] - 05/31/23 Activity/Diet/Wound Care/Special Instructions: You are scheduled for a walking nuclear stress test at [facility] on May 30 at 7am Nothing to eat or drink after midnight prior to your stress test No caffeine for 24 hours prior to stress test Do not take metoprolol morning of your stress test. You may take all your other medications in the morning with a small sip of water You are scheduled for a follow up appointment with the program supervisor, Dr. Mares on 05/31/2023 at 4pm Telehealth follow up visit with Dr. Dobbins on 05/31/11 Continue a low fiber/ diverticular diet. Avoid seeds and nuts. Discharge/Stand Alone Forms: Who Do I Call?, Area PCPs Discharge Disposition: HOME SELF-CARE
--- NOTE | 2023-05-27 17:52 | CA ---
Transthoracic Echo Report Name: Laisha Dodson Age: 68 Gender: F : 1955 Exam Date: 05/27/2023 13:35 Exam Location: [place] [facility] Ht (in): 61 Wt (lb): 164 Ordering Physician: Lavern Lainez Attending/Referring Phys: Design Verification Engineer Caleb Cruz Procedure CPT: Indications: pre-op echo Cardiac Hx: Technical Quality: Technically difficult study Contrast 1: Total Dose (mL): Contrast 2: Total Dose (mL): MEASUREMENTS (Male / Female) Normal Values 2D ECHO LV Diastolic Diameter PLAX 4.5 cm 4.2 - 5.9 / 3.9 - 5.3 cm LV Systolic Diameter PLAX 2.5 cm IVS Diastolic Thickness 1.2 cm 0.6 - 1.0 / 0.6 - 0.9 cm LVPW Diastolic Thickness 1.1 cm 0.6 - 1.0 / 0.6 - 0.9 cm LV Relative Wall Thickness 0.5 RV Internal Dim ED PLAX 2.1 cm LVOT Diameter 2.5 cm Aortic Root Diameter 3.0 cm LA Systolic Diameter LX 2.8 cm 3.0 - 4.0 / 2.7 - 3.8 cm LV Diastolic Volume MOD BP 51.6 cm??? 67 - 155 / 56 - 104 cm??? LV Systolic Volume MOD BP 21.5 cm??? 22 - 58 / 19 - 49 cm??? LV Ejection Fraction MOD BP 58.4 % >= 55 % LV Cardiac Index MOD BP 961.4 cm???/min???m??? LV Diastolic Volume MOD 4C 43.5 cm??? LV Systolic Volume MOD 4C 15.8 cm??? LV Ejection Fraction MOD 4C 63.6 % LV Cardiac Index MOD 4C 882.4 cm???/min???m??? LV Diastolic Length 4C 6.7 cm LV Systolic Length 4C 5.7 cm LV Diastolic Volume MOD 2C 56.2 cm??? LV Systolic Volume MOD 2C 24.4 cm??? LV Ejection Fraction MOD 2C 56.6 % LV Cardiac Index MOD 2C 1016.1 cm???/min???m??? LV Diastolic Length 2C 7.4 cm LV Systolic Length 2C 6.9 cm Ascending Aorta Diameter 3.5 cm DOPPLER AV Peak Velocity 104.4 cm/s AV Peak Gradient 4.4 mmHg LVOT Peak Velocity 114.2 cm/s LVOT Peak Gradient 5.2 mmHg AV Area Cont Eq pk 5.2 cm??? MV Peak Velocity 96.7 cm/s MV Peak Gradient 3.7 mmHg MV Mean Velocity 44.4 cm/s MV Mean Gradient 1.0 mmHg MV Velocity Time Integral 40.1 cm MR Peak Velocity 433.0 cm/s MR Peak Gradient 75.0 mmHg Mitral E Point Velocity 103.6 cm/s Mitral A Point Velocity 78.8 cm/s Mitral E to A Ratio 1.3 MV Deceleration Time 206.5 ms TR Peak Velocity 228.0 cm/s TR Peak Gradient 20.8 mmHg Right Ventricular Systolic Press 25.8 mmHg FINDINGS Left Ventricle Normal LV size. Left ventricular ejection fraction is estimated at 55-60 %.normal left ventricular wall motion. Mildly increased left ventricular wall thickness. Right Ventricle Normal right ventricular size. Right Atrium Normal right atrial size. Left Atrium Normal left atrial size. Mitral Valve Structurally normal mitral valve. Mild MR. Aortic Valve Trileaflet aortic valve. No aortic valve stenosis or regurgitation. Tricuspid Valve Structurally normal tricuspid valve. Trace TR. Pulmonic Valve Pulmonic valve not well visualized. No pulmonic regurgitation. Pericardium Normal pericardium. Aorta Normal size aortic root and proximal ascending aorta. CONCLUSIONS 1. Normal left ventricular size and systolic function 2. Mild mitral regurgitation. Previewed by: Dr. Tony Mares MD (Electronically Signed) Final Date: 27 May 2023 17:51
== END 2023-05-27 16:02 | disposition home or self-care (01) | DRG 391 ==
LOC: EC 22:10 → 6NMEDSUR 22:59 → OBSVTOIN 05-22 18:25
PROVIDERS: ADMIT Surgery Plastic and Reconstructive Surgery; ATTEND Surgery Plastic and Reconstructive Surgery
PROC: 0DB98ZX Excision of Duodenum, Via Natural or Artificial Opening Endoscopic, Diagnostic (ICD-10-PCS; principal; 2023-05-26 07:50)
PROC: 0DB78ZX Excision of Stomach, Pylorus, Via Natural or Artificial Opening Endoscopic, Diagnostic (ICD-10-PCS; principal; 2023-05-26 07:50)
PROC: 0DB58ZX Excision of Esophagus, Via Natural or Artificial Opening Endoscopic, Diagnostic (ICD-10-PCS; principal; 2023-05-26 07:50)
PROC: 0DJD8ZZ Inspection of Lower Intestinal Tract, Via Natural or Artificial Opening Endoscopic (ICD-10-PCS; 2023-05-26 07:50)
DX: A09 Infectious gastroenteritis and colitis, unspecified (principal); K29.51 Unspecified chronic gastritis with bleeding; K57.32 Diverticulitis of large intestine without perforation or abscess without bleeding; D61.818 Other pancytopenia; K22.10 Ulcer of esophagus without bleeding; K56.600 Partial intestinal obstruction, unspecified as to cause; K64.8 Other hemorrhoids; E87.6 Hypokalemia; K64.4 Residual hemorrhoidal skin tags; I10 Essential (primary) hypertension; K44.9 Diaphragmatic hernia without obstruction or gangrene; K21.00 Gastro-esophageal reflux disease with esophagitis, without bleeding; R74.01 Elevation of levels of liver transaminase levels; Z71.3 Dietary counseling and surveillance; Z79.890 Hormone replacement therapy; E03.9 Hypothyroidism, unspecified; Z88.1 Allergy status to other antibiotic agents; Z88.0 Allergy status to penicillin; Z79.899 Other long term (current) drug therapy; Z85.3 Personal history of malignant neoplasm of breast; Z86.711 Personal history of pulmonary embolism
CPT/HCPCS: 43239; 45381; 74018; 74019; 74177; 74270; 80048; 80053; 83630; 83993; 85025; 86140; 86850; 86900; 86901; 87045; 87046; 87324; 88305; 93005; 93306; 96365; 96375; 99285

== ENCOUNTER → 2023-07-02 | Outpatient (CLI) | payer MEDICARE, OTHER ==
--- NOTE | 2023-07-02 11:05 | MR ---
EXAMINATION TYPE: MR tspine/lspine wo/w con DATE OF EXAM: 07/02/2023 10:44 AM CLINICAL INDICATION:Female, 68 years old with history of Z12.89 ENCOUNTER FOR SCREENING FOR MALIGNANT ; [facility], Breast cancer, evaluate for mets. COMPARISON: None TECHNIQUE: Multi planar, multi sequence imaging was performed utilizing: T1-weighted, T2-weighted, a nd turbo inversion recovery imaging of the thoracic and lumbar spine. IV Contrast: 7 cc Gadobutrol. None. FINDINGS: Alignment: The thoracic and lumbar vertebral bodies have preserved heights and alignment. Cord: The conus medullaris and the distal spinal cord appear unremarkable with regards to their signa l intensity and morphology. Bones/Discs: Diffuse heterogenous signal throughout the osseous structures with scattered postcontras t enhancement. This is in nearly all the osseous structures.. There is postsurgical changes to the lo wer lumbar spine at L5 and S1. THORACIC: No evidence significant spinal canal or neural foraminal stenosis. Spinal cord is within no rmal limits. LUMBAR: T12-L1: No evidence of significant spinal canal stenosis or neural foraminal stenosis. L1-L2: Disc bulge and facet joint arthropathy result in mild spinal canal and moderate bilateral neur al foraminal stenosis. L2-L3: Disc bulge and facet joint arthropathy result in mild spinal canal and moderate bilateral neur al foraminal stenosis. L3-L4: Disc bulge and facet joint arthropathy result in mild spinal canal and moderate bilateral neur al foraminal stenosis. L4-L5: Disc bulge and facet joint arthropathy result in mild to moderate spinal canal and moderate bi lateral neural foraminal stenosis. L5-S1: The disc is rounded posterior morphology without significant spinal canal stenosis. Facet join t arthropathy with mild neural foraminal stenosis. Other findings: Bilateral renal cysts. IMPRESSION: 1. Diffuse heterogenous bone marrow signal bladder which is low T1 signal and demonstrates postcontr ast enhancement. Findings most compatible with diffuse metastatic disease. 2. No definitive evidence of disc herniation or significant spinal canal stenosis. 3. Moderate disc degeneration with associated osteoarthritic changes. Multilevel neural foraminal st enosis most pronounced throughout the lower spine.
== END | disposition home or self-care (01) ==
LOC: RADMRIMAIN 08:44
PROVIDERS: ATTEND Family Medicine
DX: Z12.89 Encounter for screening for malignant neoplasm of other sites (principal); M51.34 Other intervertebral disc degeneration, thoracic region; M47.814 Spondylosis without myelopathy or radiculopathy, thoracic region; M99.72 Connective tissue and disc stenosis of intervertebral foramina of thoracic region
CPT/HCPCS: 72157; 72158; A9585

== ENCOUNTER 2023-08-18 10:09 | Inpatient (IN) | payer MEDICARE, OTHER ==
--- NOTE | 2023-08-18 07:54 | P.GSHP ---
History of Present Illness H&P Date: 08/18/23 CHIEF COMPLAINT: Sigmoid diverticulosis possible obstruction HISTORY OF PRESENT ILLNESS: The patient is a 68-year-old female who presents with change in bowel habits including intermittent large bowel obstruction for over 6 months. She reports intermittent gas bloat. She had attempted prior colonoscopy unsuccessful. She presents for surgical options, sigmoid colectomy. PAST MEDICAL HISTORY: Please see list. PAST SURGICAL HISTORY: Please see list. MEDICATIONS: Please see list. ALLERGIES: Please see list. SOCIAL HISTORY: No illicit drug use FAMILY HISTORY: No reports of Crohn disease or ulcerative colitis. REVIEW OF ORGAN SYSTEMS: CONSTITUTIONAL: Denies any fever or chills. HEENT: Denies any trouble with vision or nosebleeds. No difficulty swallowing. LYMPHATIC: The patient denies any lumps and bumps around the neck. ENDOCRINE: Denies any thyroid disorders. Has blood sugar glucose intolerance. RESPIRATORY: Denies pneumonia. Denies any troubles with breathing or dyspnea on exertion. CARDIOVASCULAR: Denies any chest pain, palpitations, or recent heart attacks. GASTROINTESTINAL: Has chronic diverticulitis. GENITOURINARY: Has increased urinary frequency. MUSCULOSKELETAL: Has back pain, stiffness, joint arthritis. NEUROLOGIC: Denies any numbness or tingling along the distal extremities. No seizure disorders or headaches. PSYCHIATRIC: Denies depression or suidical ideation. HEMATOLOGIC: Denies any abnormal bleeding or bruising. BREAST: History of breast cancer now with metastases PHYSICAL EXAM: VITAL SIGNS: Stable GENERAL: Well-developed pleasant in no acute distress. HEENT: No scleral icterus. Extraocular movements grossly intact. Moist buccal mucosa. NECK: Supple without lymphadenopathy. CHEST: Unlabored respirations. Equal bilateral excursions. CARDIOVASCULAR: Regular rate and rhythm. Distal 2+ pulses. ABDOMEN: Soft, nontender, nondistended. MUSCULOSKELETAL: No clubbing, cyanosis, or edema. NERUO: Cranial nerves 2-12 grossly intact. PSYCH: Alert and oriented to person place and time. ASSESSMENT: 1. Sigmoid diverticulosis with intermittent bowel obstruction 2. Metastatic breast cancer PLAN: 1. Benefits and risks of surgical robotic sigmoid resection was reviewed in detail. Robotic-assisted approach was also described. 2. Enhanced colon recovery program. 3. DVT prophylaxis. 4. Antibiotic prophylaxis. 5. Inpatient hospitalization greater than 2 nights. 6. Recommend colonoscopy for extent of obstruction and evaluation of neoplasm. 7. She is elevated risk due to metastatic breast cancer Past Medical History Past Medical History: Cancer, GERD/Reflux, Hypertension, Thyroid Disorder Additional Past Medical History / Comment(s): breast, bilateral mastectomy, with reconstruction. 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 History of Any Multi-Drug Resistant Organisms: None Reported Past Surgical History: Breast Surgery, Section, Cholecystectomy, Heart Catheterization, Hysterectomy, Tubal Ligation Additional Past Surgical History / Comment(s): bilateral mastectomy, tumour to abdomen, cardiac clearance heart cath Past Anesthesia/Blood Transfusion Reactions: No Reported Reaction Smoking Status: Never smoker - Past Family History Mother Family Medical History: No Reported History, Cancer Additional Family Medical History / Comment(s): breast bladder mets to brain Father Family Medical History: Cancer Additional Family Medical History / Comment(s): multiple myeloma Medications and Allergies Home Medications Medication Instructions Recorded Confirmed Type Famotidine 40 mg PO BID 05/20/23 08/17/23 History LORazepam [Ativan] 0.5 mg PO BID PRN 05/20/23 08/17/23 History Levothyroxine Sodium [Synthroid] 75 mcg PO DAILY 05/20/23 08/17/23 History Metoprolol Succinate (ER) [Toprol 50 mg PO DAILY 05/20/23 08/17/23 History XL] Oxybutynin Xl [Ditropan XL] 5 mg PO DAILY 05/20/23 08/17/23 History hydroCHLOROthiazide 25 mg PO DAILY 05/20/23 08/17/23 History lisinopriL 40 mg PO DAILY 05/20/23 08/17/23 History Aspirin [Adult Low Dose Aspirin EC] 81 mg PO DAILY 06/01/23 08/17/23 History Allergies Allergy/AdvReac Type Severity Reaction Status Date / Time meperidine [From Demerol] Allergy Nausea & Verified 08/17/23 08:27 Vomiting Penicillins Allergy Nausea & Verified 08/17/23 08:27 Vomiting
[~2023-08-18 10:09] MED LIST: Antibiotics per Pharmacy 1 EACH MISC MISCELLANE PRN; HEPARIN SODIUM,PORCINE/PF 5,000 UNIT/0.5 ML SYRINGE SQ PRN; SODIUM CHLORIDE 0.9% 2,000 ML IV ONE
[2023-08-18] MEDS: LACTATED RINGERS 1,000 ML IV SCH (10:50)
[2023-08-18] MEDS ORDERED: PROPOFOL 10 MG/ML 20 ML VIAL IV ONE (10:54)
[2023-08-18] MEDS ORDERED: LIDOCAINE 1% INJ 10MG/ML (20 ML MDV) ONE (10:54)
[2023-08-18 11:10] LABS: Basophils % (A) 1 %; Eosinophils # (A) 0.1 k/uL (0-0.7); Eosinophils % (A) 1 %; HCT 35.5 % (34.0-46.0); HGB 12.1 gm/dL (11.4-16.0); Lymphocytes % (A) 37 %; MCH 32.7 pg (25.0-35.0); MCHC 34.1 g/dL (31.0-37.0); MCV 95.9 fL (80.0-100.0); Monocytes # (A) 0.3 k/uL (0-1.0); Monocytes % (A) 6 %; Neutrophils # (A) 2.9 k/uL (1.3-7.7); Neutrophils % (A) 54 %; Platelet Count 182 k/uL (150-450); RDW 13.8 % (11.5-15.5); WBC 5.3 k/uL (3.8-10.6)
--- NOTE | 2023-08-18 11:16 | P.PCN ---
Date of Procedure: 08/18/23 Description of Procedure: PREOPERATIVE DIAGNOSIS: Diverticulosis with partial bowel obstruction Metastatic breast cancer POSTOPERATIVE DIAGNOSIS: Diverticulosis with partial bowel obstruction Metastatic breast cancer OPERATION: Colonoscopy to the sigmoid colon with injection of Rahel ink, 3 mL SURGEON: Sally Dobbins MD. ANESTHESIA: MAC. INDICATIONS: The patient is a 68-year-old female who presents with diverticulosis and partial bowel obstruction. Benefits and risks were described and informed consent was obtained. DESCRIPTION OF PROCEDURE: The patient had undergone Sutab prep. She had been brought into the operating room and laid in the left lateral decubitus position. After adequate intravenous sedation, the rectum was examined with 2% lidocaine jelly. External hemorrhoids were encountered. The rectal tone was within normal limits. No lesions were palpated in the rectal vault. An Olympus colonoscope was advanced along the rectum to a very tortuous sigmoid colon. The scope was then exchanged for a pediatric colonoscope. Despite multiple maneuvers, the sigmoid colon was partia lly obstructed preventing further advancement of the scope. The scope was passed to 30 cm from the anal verge with injection of Rahel ink, 3 mL. No evidence of polyps were identified. As the patient posed high risk for perforation with persistence of the procedure, the procedure was discontinued. The colon was desufflated. The patient had tolerated the procedure well. Withdrawal time was over 6 minutes. FINDINGS: [place] preparation quality scale 1 (1-5) Partial obstruction of sigmoid colon with stricture preventing further advancement of the scope. External prolapsed hemorrhoids, grade 3 Scope advanced to sigmoid colon at 30 cm with injection of Rahel No arteriovenous malformations. No adenomatous polyps. No focal colitis. RECOMMENDATIONS: Recommend colon resection due to persistent obstruction Immediate inpatient hospitalization advised Plan - Discharge Summary Discharge Rx Participant: No New Discharge Prescriptions: No Action lisinopriL 40 mg PO DAILY LORazepam [Ativan] 0.5 mg PO BID PRN PRN Reason: Anxiety Famotidine 40 mg PO BID Aspirin [Adult Low Dose Aspirin EC] 81 mg PO DAILY hydroCHLOROthiazide 25 mg PO DAILY Oxybutynin Xl [Ditropan XL] 5 mg PO DAILY Metoprolol Succinate (ER) [Toprol XL] 50 mg PO DAILY Levothyroxine Sodium [Synthroid] 75 mcg PO DAILY Discharge Medication List Famotidine 40 mg PO BID 05/20/23 [History] LORazepam [Ativan] 0.5 mg PO BID PRN 05/20/23 [History] Levothyroxine Sodium [Synthroid] 75 mcg PO DAILY 05/20/23 [History] Metoprolol Succinate (ER) [Toprol XL] 50 mg PO DAILY 05/20/23 [History] Oxybutynin Xl [Ditropan XL] 5 mg PO DAILY 05/20/23 [History] hydroCHLOROthiazide 25 mg PO DAILY 05/20/23 [History] lisinopriL 40 mg PO DAILY 05/20/23 [History] Aspirin [Adult Low Dose Aspirin EC] 81 mg PO DAILY 06/01/23 [History]
[2023-08-18 11:48] LABS: ALT 17 U/L (4-34); AST 50 U/L (14-36); African American GFR (CKD) 75 (>60 ml/min/1.73 sqM); Albumin 4.2 g/dL (3.5-5.0); Alkaline Phosphatase 75 U/L (38-126); Blood Urea Nitrogen 21 mg/dL (7-17); Calcium 9.4 mg/dL (8.4-10.2); Carbon Dioxide 24 mmol/L (22-30); Glucose 83 mg/dL (74-99); Non-African American GFR(CKD) 65 (>60 ml/min/1.73 sqM); Potassium 3.7 mmol/L (3.5-5.1); Sodium 142 mmol/L (137-145); Total Bilirubin 0.5 mg/dL (0.2-1.3); Total Protein 6.9 g/dL (6.3-8.2)
[2023-08-18 12:07] LABS: Anion Gap 14 mmol/L; Chloride 104 mmol/L (98-107)
[2023-08-18] MEDS: metroNIDAZOLE 500 MG TAB PO SCH ×3 (13:26→22:45)
[2023-08-18] MEDS: NEOMYCIN 500 MG TAB PO SCH ×3 (13:27→22:45)
[2023-08-18] MEDS ORDERED: PEG 3350 (420 GM/BTL) + LYTES 4,000 ML BOTTLE PO ONE (14:00)
[2023-08-18] MEDS ORDERED: METOCLOPRAMIDE 5 MG/ML 2 ML VIAL IVP PRN (17:13)
[2023-08-18] MEDS: LORazepam 2 MG/ML INJ IV PRN ×2 (17:20→22:50)
[2023-08-18] MEDS ORDERED: TEMAZEPAM 15 MG CAP PO ONE (21:00)
[2023-08-18] MEDS ORDERED: HYDROmorphone 1 MG/ML 1 ML SYRINGE IVP PRN (21:04)
[2023-08-18] MEDS: FAMOTIDINE 20 MG TAB PO SCH (21:05)
[2023-08-18] MEDS: SODIUM CHLORIDE 0.9% 1,000 ML IV SCH ×2 (21:06)
[2023-08-19] MEDS ORDERED: metroNIDAZOLE-NS PMX 500 MG in SALINE 1 100ML.BAG IVPB PRN (05:00)
[2023-08-19] MEDS: LACTATED RINGERS 1,000 ML IV SCH ×3 (05:21→07:30)
[2023-08-19] MEDS: SODIUM CHLORIDE 0.9% 1,000 ML IV SCH ×2 (05:21→14:11)
[2023-08-19] MEDS ORDERED: IV FLUID CONTINUATION 1,000 ML IV ONE ×2 (06:10→07:20)
[2023-08-19] MEDS ORDERED: HEPARIN SODIUM,PORCINE/PF 5,000 UNIT/0.5 ML SYRINGE SQ PRN (07:00)
[2023-08-19] MEDS ORDERED: ACETAMINOPHEN TAB 500 MG TAB PO PRN (07:00)
[2023-08-19] MEDS ORDERED: ALVIMOPAN 12 MG CAPSULE PO PRN (07:00)
[2023-08-19] MEDS ORDERED: MELOXICAM 7.5 MG TAB PO PRN (07:00)
[2023-08-19] MEDS ORDERED: MIDAZOLAM 2 MG/2 ML VIAL IVP ONE (07:07)
[2023-08-19] MEDS ORDERED: fentaNYL (PF) 50 MCG/ML 2 ML AMP IVP ONE (07:08)
[2023-08-19] MEDS ORDERED: DEXAMETHASONE SOD PHOSPHATE 4 MG/ML 1 ML VIAL IVP ONE (07:12)
[2023-08-19] MEDS ORDERED: ONDANSETRON 4 MG/2 ML VIAL IVP ONE (07:13)
[2023-08-19] MEDS ORDERED: LIDOCAINE 1% INJ 10MG/ML (20 ML MDV) ONE (07:25)
[2023-08-19] MEDS ORDERED: ROPIVACAINE 5 MG/ML 30 ML VIAL ONE (07:25)
[2023-08-19] MEDS ORDERED: GLYCOPYRROLATE 0.2 MG/ML 2 ML VIAL ONE (07:25)
[2023-08-19] MEDS ORDERED: WATER FOR INJECTION, STERILE 10 ML VIAL IV ONE (07:25)
[2023-08-19] MEDS ORDERED: ROCURONIUM 10 MG/ML (5 ML VIAL) IV ONE (07:25)
[2023-08-19] MEDS ORDERED: fentaNYL (PF) 50 MCG/ML 2 ML AMP ONE (07:25)
[2023-08-19] MEDS ORDERED: NEOSTIGMINE 1 MG/ML 10 ML VIAL ONE (07:25)
[2023-08-19] MEDS ORDERED: ePHEDrine 50 MG/ML 1 ML VIAL ONE (07:25)
[2023-08-19] MEDS ORDERED: SUCCINYLCHOLINE CHLORIDE 200 MG/10 ML VIAL IV ONE (07:25)
[2023-08-19] MEDS ORDERED: PROPOFOL 10 MG/ML 20 ML VIAL IV ONE (07:25)
[2023-08-19] MEDS ORDERED: SODIUM CHLORIDE 0.9% (PF) 10 ML VIAL ONE (07:25)
[2023-08-19] MEDS ORDERED: LIDOCAINE 1% INJ 10MG/ML (20 ML MDV) SQ ONE (07:30)
--- NOTE | 2023-08-19 09:54 | P.ANPRN ---
Procedure Note - Anesthesia - Nerve Block Performed Bilateral Erector Spinae Single Time Out Performed: Yes ([id number]) Date of Procedure: 08/19/23 Procedure Start Time: :07 Procedure Stop Time: :12 Location of Patient: PreOp Indication: Acute Post-Operative Pain, Requested by Surgeon Specifically requested for management of pain by : Sally Dobbins Sedation Type: Sedate with meaningful contact maintained Preparation: Sterile Prep Position: Sitting Catheter: None Needle Types: Pajunk Needle Gauge: 21 (x2) Ultrasound used to visualize needle placement: Yes Ultrasound used to observe medication spread: Yes Injectate: 0.5% Ropivacaine (see comment for volume) (15cc + 10cc nacl pf each side) Blood Aspirated: No Pain Paresthesia on Injection Noted: No Resistance on Injection: Normal Image Stored and Saved: Yes Events: Uneventful and Well Tolerated
[2023-08-19 11:50] VITALS: BMI 28.3
[2023-08-19] MEDS ORDERED: LACTATED RINGERS 1,000 ML IV ONE (12:14)
[2023-08-19] MEDS: OXYBUTYNIN XL 5 MG TAB.ER.24 PO SCH (13:01)
[2023-08-19] MEDS: METOPROLOL SUCCINATE (ER) 50 MG TAB.ER.24H PO SCH (13:01)
[2023-08-19] MEDS: FAMOTIDINE 20 MG TAB PO SCH ×2 (13:01→20:22)
[2023-08-19] MEDS ORDERED: KETOROLAC 15 MG/ML 1 ML VIAL IVP PRN (13:06)
--- NOTE | 2023-08-19 13:39 | P.OP ---
Date of Procedure: 08/19/23 Description of Procedure: SURGEON: FRANCESCO TORRES MD PREOPERATIVE DIAGNOSES: 1. Sigmoid diverticulitis with partial large bowel obstruction 2. Metastatic breast cancer to spine 3. Chronic lower abdominal pain 4. Unintentional weight loss 5. Hypertensive heart disease 6. Hypothyroidism 7. Generalized anxiety disorder 8. History of appendicitis 9. Gastroesophageal reflux disease 10. Overactive bladder POSTOPERATIVE DIAGNOSES: 1. Partial large bowel obstruction due to sigmoid stricture, possible due to metastatic breast cancer 2. Metastatic breast cancer to spine 3. Chronic lower abdominal pain 4. Unintentional weight loss 5. Hypertensive heart disease 6. Hypothyroidism 7. Generalized anxiety disorder 8. History of appendicitis 9. Gastroesophageal reflux disease 10. Overactive bladder 11. Acute and chronic appendicitis possible due to metastatic breast cancer 12. Pelvic adhesions 13. Appendiceal phlegmon with appendicitis OPERATION: 1. Robotic-assisted daVinci Xi sigmoid colectomy ABORTED due to intense adhesions possible metastatic breast cancer 2. Robotic-assisted daVinci Xi extensive lysis of adhesions over 2.5 hours greater omentum to abdominal wall, pelvis, bilateral lower quadrant 3. Robotic-assisted daVinci Xi appendectomy 4. Excisional omental biopsy for metastatic breast cancer 5. Excisional biopsy of sigmoid colon epiploica 6. Aspiration peritoneal fluid for metastatic cancer 7. Intraoperative colonoscope used for sigmoidoscopy Anesthesia: GETA, local, regional Estimated Blood Loss (ml): 50 Pathology: 1. Aerobic and anaerobic culture of appendix and phlegmon 2. Epiploica sigmoid colon 3. Cell cytology peritoneal fluid, 5-mL 4. Excisional omental biopsy, pelvis for metastatic cancer Condition: stable Disposition: floor COMPLICATIONS: None. Operative Findings: 1. Abnormal concrete adhesions involving sigmoid colon to left pelvis suggestive of metastatic disease prohibiting taking complete robotic colectomy 2. Dense inflammatory reaction of appendix with phlegmon consistent with acute on chronic appendicitis, possible metastatic cancer 3. Severe midline, epigastric and pelvic adhesions 4. Intraoperative findings of severe adhesions and consistency of adhesions discussed with family including findings of appendix. 5. Patient has pre-existing history of appendicitis for which appendectomy was performed upon consent with and daughter, family INDICATIONS: The patient is a 68-year-old female who presented 3 months ago with suspected appendicitis. Patient reports chronic diarrhea ongoing for over 6-8 months prior to her hospitalization. Diagnostic studies at that time demonstrated questionable appendicitis with diverticulitis. Colonoscopy had been previously unsuccessful due to severe stricture of the sigmoid colon due to diverticulitis. Patient reports recent diagnosis of metastatic breast cancer less than once month ago. With clearance from her oncologist, pursuing colectomy was described for partial large bowel obstruction due to diverticulitis. She had colonoscopy with tattoo due to stricture. Benefits and risks of surgical intervention was described in detail including infection, injury to the ureter, colostomy creation, possibility for additional surgery was discussed at length. Informed consent was obtained. All questions of the patient and family were answered. DESCRIPTION: Earlier the patient had undergone a bowel prep using the enhanced colon recovery program. The patient was transferred to the operating room and placed supine. After general induction, the abdomen was prepped and draped in standard sterile fashion. Ioban was placed along the abdomen to minimize any contamination of skin floor. A Wilson catheter was placed. After a timeout protocol was performed, attention was then brought to the left upper quadrant whereby a 0 degree 5 mm laparoscopic trocar entry was performed. The abdominal cavity was entered and insufflated to 15 mmHg pressure, which was tolerated well. Diagnostic laparoscopy confirmed severe midline epigastric adhesions of omentum to the abdominal wall. The small bowel was unremarkable. Next a robotic 12-mm trocar was placed along the right lateral abdominal wall 20 cm superior from the pelvis. Two 8 mm ports were placed along the upper abdomen. Ports were placed 10 cm apart from each other including 20 cm away from the target anatomy of the left pelvis. The 12-mm port was exchanged for an 8 mm robotic port at the left upper quadrant. The robot was docked along the left lateral abdomen. The patient was positioned in steep Trendelenburg position at 21-degrees. Using atraumatic graspers and vessel sealer, the robotic system was docked and primed as described. Instruments were interchanged by the insurance assistant including hook cautery, robotic stapler and vessel sealer. The robot stapler was prepared along the right lateral abdominal wall. The stapler 12-mm port was arranged along the right lateral abdominal wall. Due to intense intra-abdominal adhesions, robotic lysis of adhesions using vessel sealer and hook cautery was performed disconnecting greater omentum from the abdominal wall down toward the pelvis and bilateral lower abdomen. Next attention was brought to the sigmoid colon where adhesions were firm and dense with concrete adhesions. Using careful dissection using hook cautery and blunt dissection the sigmoid colon was carefully dissected free from the left pelvis towards to pubis however at the pubis, concrete adhesions not amenable to further dissection was identified. Tattoo from colonoscopy was identified. I went to the foot of bed to perform an intraoperative sigmoidoscopy to confirm location of adhesion involving the distal sigmoid colon. Multiple images were obtained. With the above finding, I went to the patient's family to speak to her and daughter regarding progression of the case. Due to her recent diagnosis of metastatic breast cancer and intraoperative findings suspicious of metastatic disease within the pelvis, aborting procedure was discussed as colectomy and anastomosis in presence of metastatic disease would lead to risk of leak. Option of appendicectomy was also described due to her recent history of appendicitis on diagnostic imaging. and daughter agreed with proceeding with appendectomy with biopsies for oncologist. I returned to the case which shared decision-making of appendectomy and biopsies. I went to the surgeon's console. The epiploica of the sigmoid colon demonstrated melting into the tissues unusual of typical adhesions. High suspicion of metastatic disease from her breast cancer was assessed. Excisional biopsy of sigmoid epiploica was obtained as mucosal biopsy via colonoscopy is unsuccessful due to her stricture. Cell cytology of peritoneal fluid was also obtained. With her recent history of appendicitis, the appendix was investigated with active phlegmon identified. Extensive lysis of adhesions was performed to free the meso-appendix including the appendix. Using a 45 mm blue staple load, the appendix was resected at its base. The appendix was removed using a 10-mm Endo Catch bag. Immediate yellow and white fluid emanated from the appendix consistent with appendicitis. Cultures aerobic and anaerobic cultures were obtained. Extensive lysis of adhesions over 2.5 hours was performed for the entire case. Of the pelvis, the tissue also melted into the abdominal wall. Excisional biopsy of the omentum was obtained of the pelvis to also investigate for metastatic breast cancer. The robot was undocked. I re-scrubbed into the case. Via the right upper quadrant port, the specimen was removed using 15 mm Endo Catch bag. All sponges were removed from the abdominal cavity. Next all pneumoperitoneum was evacuated from the abdominal cavity. The 8-mm trocar sites were reapproximated using 4-0 Monocryl in an interrupted subcuticular fashion. Local anesthetic was infiltrated to all wounds for postop analgesia. All incisions were also cleansed with diluted hydrogen peroxide. Liquid glue was applied to the rest of the skin incisions. The patient had tolerated the procedure well. The patient was extubated successfully. The patient was transferred to the postanesthesia care unit in stable condition. Intraoperative findings were described in detail to the patient's family. Recommend inpatient hospitalization due to partial large bowel obstruction including appendicitis.
[2023-08-19] MEDS: ONDANSETRON 4 MG/2 ML VIAL IVP PRN (14:11)
[2023-08-19] MEDS: ACETAMINOPHEN IV (For NPO) 1,000 MG in EMPTY BAG 1 BAG IVPB SCH ×2 (14:11→18:08)
[2023-08-19 16:17] LABS: Basophils % (A) 0 %; Eosinophils % (A) 0 %; HCT 35.7 % (34.0-46.0); Lymphocytes # (A) 0.5 k/uL (1.0-4.8); Lymphocytes % (A) 10 %; MCH 33.4 pg (25.0-35.0); MCHC 33.6 g/dL (31.0-37.0); MCV 99.4 fL (80.0-100.0); Mean Platelet Volume 7.3; Monocytes # (A) 0.2 k/uL (0-1.0); Monocytes % (A) 4 %; Neutrophils # (A) 3.9 k/uL (1.3-7.7); Neutrophils % (A) 85 %; Platelet Count 147 k/uL (150-450); RBC 3.59 m/uL (3.80-5.40); RDW 13.3 % (11.5-15.5); WBC 4.6 k/uL (3.8-10.6)
[2023-08-19 16:27] LABS: ALT 15 U/L (4-34); AST 42 U/L (14-36); African American GFR (CKD) >90 (>60 ml/min/1.73 sqM); Albumin 3.1 g/dL (3.5-5.0); Albumin/Globulin Ratio 1.2; Alkaline Phosphatase 63 U/L (38-126); Anion Gap 13 mmol/L; Blood Urea Nitrogen 12 mg/dL (7-17); Carbon Dioxide 14 mmol/L (22-30); Chloride 109 mmol/L (98-107); Globulin 2.5 g/dL; Glucose 161 mg/dL (74-99); Non-African American GFR(CKD) >90 (>60 ml/min/1.73 sqM); Potassium 3.8 mmol/L (3.5-5.1); Sodium 136 mmol/L (137-145); Total Bilirubin 0.6 mg/dL (0.2-1.3); Total Protein 5.6 g/dL (6.3-8.2)
[2023-08-19 16:29] LABS: Calcium 8.3 mg/dL (8.4-10.2)
--- NOTE | 2023-08-19 22:19 | P.PN ---
Progress Note - Text Progress Note Date: 08/19/23 Patient pain control. Intraoperative findings of severe adhesions and early features of peritoneal studding and metastatic breast cancer described. Overall, may advance diet. Discharge home when pain well controlled, tolerating diet and voiding spontaneously
[2023-08-20] MEDS: metroNIDAZOLE-NS PMX 500 MG in SALINE 1 100ML.BAG IVPB SCH ×2 (00:14→05:56)
[2023-08-20] MEDS: ACETAMINOPHEN IV (For NPO) 1,000 MG in EMPTY BAG 1 BAG IVPB SCH ×2 (00:14→05:55)
[2023-08-20] MEDS: SODIUM CHLORIDE 0.9% 1,000 ML IV SCH ×2 (00:15→11:16)
[2023-08-20] MEDS: OXYBUTYNIN XL 5 MG TAB.ER.24 PO SCH (08:13)
[2023-08-20] MEDS: FAMOTIDINE 20 MG TAB PO SCH (08:13)
[2023-08-20] MEDS: METOPROLOL SUCCINATE (ER) 50 MG TAB.ER.24H PO SCH (08:14)
[2023-08-20 08:42] VITALS: RESP 16
[2023-08-20] MEDS: SIMETHICONE 40 MG/0.6 ML DROPS 2,000 MG/30 ML BOTTLE PO SCH ×2 (08:52→12:12)
[2023-08-20] MEDS ORDERED: ALVIMOPAN 12 MG CAPSULE PO SCH (09:00)
[2023-08-20 09:14] LABS: Blood Urea Nitrogen 9.9 mg/dL (9.0-27.0); Chloride 109 mmol/L (96-109); Glucose 97 mg/dL (70-110); Potassium 3.8 mmol/L (3.5-5.5); Sodium 141 mmol/L (135-145)
[2023-08-20 09:15] LABS: ALT 9 U/L (8-44); AST 33 U/L (13-35); Albumin 3.1 g/dL (3.8-4.9); Albumin/Globulin Ratio 1.72 Ratio (1.60-3.17); Alkaline Phosphatase 58 U/L (41-126); Calcium 8.4 mg/dL (8.7-10.3); Carbon Dioxide 20.3 mmol/L (21.6-31.8); Globulin 1.8 g/dL (1.6-3.3); Total Bilirubin 0.3 mg/dL (0.3-1.2); Total Protein 4.9 g/dL (6.2-8.2)
[2023-08-20] MEDS: ONDANSETRON 4 MG/2 ML VIAL IVP PRN ×2 (09:50→15:37)
--- NOTE | 2023-08-20 10:16 | P.PN ---
Subjective Progress Note Date: 08/20/23 OBIEON. Patient stating that per pain is well controlled. No F/C. No SOB or CP. No headache or blurry vision. Admits to small amount of flatus. No BM. Voiding and ambuatory. Objective - Vital Signs Vital signs: Vital Signs Temp 99.2 F 08/20/23 07:45 Pulse 103 H 08/20/23 07:45 Resp 16 08/20/23 07:45 BP 105/72 08/20/23 07:45 Pulse Ox 97 08/20/23 07:45 FiO2 Intake & Output 08/19/23 08/20/23 08/20/23 18:59 06:59 18:59 Intake Total 1850 Output Total 440 1525 Balance 1410 -1525 Weight 70.4 kg Intake: IV 1850 Output: Urine 390 1525 Uretheral (Wilson) 275 Estimated Blood Loss 50 Other: Voiding Method Toilet # Voids 1 - Exam Gen: AxO, NAD Pulm: non-labored respirations Abd: soft, non-tender, minimally distended, no guarding/rebound/rigidity Incisions: C/D/I, no erythema or fluctuence appreciated Extrem: no edema seen - Labs CBC & Chem 7: 08/19/23 15:41 08/20/23 07:03 Labs: Abnormal Lab Results - Last 24 Hours (Table) 08/19/23 08/19/23 08/20/23 Range/Units 15:41 15:41 07:03 RBC 3.59 L (3.80-5.40) m/uL Plt Count 147 L (150-450) k/uL Lymphocytes # 0.5 L (1.0-4.8) k/uL Sodium 136 L (137-145) mmol/L Chloride 109 H (98-107) mmol/L Carbon Dioxide 14 L 20.3 L (22-30) mmol/L BUN/Creatinine Ratio 11.00 L (12.00-20.00) Ratio Glucose 161 H (74-99) mg/dL Calcium 8.3 L 8.4 L (8.4-10.2) mg/dL AST 42 H (14-36) U/L Total Protein 5.6 L 4.9 L (6.3-8.2) g/dL Albumin 3.1 L 3.1 L (3.5-5.0) g/dL Microbiology - Last 24 Hours (Table) 08/19/23 11:07 Gram Stain - Preliminary Appendix Assessment and Plan Assessment: Patient is a 68 year old female who is POD#1 from laparoscopic appendectomy Plan: -Diet as tolerated -Encourage ambulation -PRN pain and nasuea control -DVT/GI PPx -If tolerating diet, ambulatory, voiding spontaneously will consider DC home today. Keven Sutton MD General Surgery
[2023-08-20 10:19] LABS: Basophils # (A) 0.01 X 10*3/uL (0.00-0.10); Basophils % (A) 0.2 %; Eosinophils # (A) 0.03 X 10*3/uL (0.04-0.35); Eosinophils % (A) 0.5 %; HCT 30.9 % (37.2-46.3); HGB 10.2 g/dL (12.0-15.0); Lymphocytes # (A) 0.71 X 10*3/uL (0.90-5.00); Lymphocytes % (A) 12.7 %; MCV 96.9 FL (80.0-97.0); Mean Platelet Volume 9.8 FL (9.5-12.2); Monocytes # (A) 0.34 X 10*3/uL (0.20-1.00); Monocytes % (A) 6.1 %; NRBC Per 100 WBC 0 X 10*3/uL (0.00-0.01); Neutrophils # (A) 4.47 X 10*3/uL (1.80-7.70); Neutrophils % (A) 80.3 %; Platelet Count 146 X 10*3/uL (140-440); RBC 3.19 X 10*6/uL (4.10-5.20); RDW 13.6 % (11.5-14.5); WBC 5.57 X 10*3/uL (4.50-10.00)
[2023-08-20 13:55] VITALS: BP 103/70; PULSE 87; TEMP 98.6
[2023-08-20] MEDS ORDERED: ONDANSETRON ODT 4 MG TAB PO PRN (15:03)
--- NOTE | 2023-08-20 17:11 | P.CONS ---
History of Present Illness - Reason for Consult Consult date: 08/19/23 metastatic breast cancer Requesting physician: Sally Dobbins - Chief Complaint abd pain - History of Present Illness Patient is a 68-year-old female with a significant history of breast cancer. Patient was diagnosed with left breast cancer in 2010 and was treated in [place] and underwent bilateral mastectomies and was on Aromasin for 7 years. Patient reports she had recent recurrence with spinal metastasis. Patient follows with Dr. Mcmanus at [facility]. Patient was admitted for colon resection with Dr. Dobbins due to persistent obstruction related to diverticulosis. Patient underwent robotic laparoscopic surgery on 08/19, sigmoid colectomy was aborted due to intense abdominal adhesions. Patient underwent extensive lysis of adhesions. Appendectomy was also performed. Cytology of peritoneal fluid was obtained with biopsies of the colon, omentum and appendix. At today's visit patient is resting comfortably in bed. Patient is reporting some abdominal discomfort but states pain is in control. Denies nausea vomiting. Patient is afebrile. CBC reviewed, WBC 4.6, Hgb 12.0, Plt 147,000. Review of Systems 10 point ROS is negative except as stated in the HPI Past Medical History Past Medical History: Cancer, GERD/Reflux, Hypertension, Thyroid Disorder Additional Past Medical History / Comment(s): breast, bilateral mastectomy, with reconstruction. 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 History of Any Multi-Drug Resistant Organisms: None Reported Past Surgical History: Breast Surgery, Section, Cholecystectomy, Heart Catheterization, Hysterectomy, Tubal Ligation Additional Past Surgical History / Comment(s): bilateral mastectomy, tumour to abdomen, cardiac clearance heart cath Past Anesthesia/Blood Transfusion Reactions: No Reported Reaction Past Psychological History: No Psychological Hx Reported Smoking Status: Never smoker Past Alcohol Use History: Occasional Past Drug Use History: Marijuana Additional Drug Use History / Comment(s): edibles knows to not have 24 hours due to procedure stopped aug 1411/2022 - Past Family History Mother Family Medical History: No Reported History, Cancer Additional Family Medical History / Comment(s): breast bladder mets to brain Father Family Medical History: Cancer Additional Family Medical History / Comment(s): multiple myeloma Medications and Allergies Home Medications Medication Instructions Recorded Confirmed Type Famotidine 40 mg PO BID 05/20/23 08/18/23 History LORazepam [Ativan] 0.5 mg PO BID PRN 05/20/23 08/18/23 History Levothyroxine Sodium [Synthroid] 75 mcg PO DAILY 05/20/23 08/18/23 History Metoprolol Succinate (ER) [Toprol 50 mg PO DAILY 05/20/23 08/18/23 History XL] Oxybutynin Xl [Ditropan XL] 5 mg PO DAILY 05/20/23 08/18/23 History hydroCHLOROthiazide 25 mg PO DAILY 05/20/23 08/18/23 History lisinopriL 40 mg PO DAILY 05/20/23 08/18/23 History Aspirin [Adult Low Dose Aspirin EC] 81 mg PO DAILY 06/01/23 08/18/23 History Acetaminophen Tab [Tylenol Tab] 1,000 mg PO Q6HR PRN #30 tablet 08/19/23 Rx Ibuprofen [Motrin] 600 mg PO Q8HR PRN #30 tab 08/19/23 Rx Simethicone [Gas-X] 125 mg PO AC-TID PRN #20 capsule 08/19/23 Rx Ondansetron Odt [Zofran Odt] 4 mg PO Q6HR PRN 3 Days #10 tab 08/20/23 Rx Allergies Allergy/AdvReac Type Severity Reaction Status Date / Time meperidine [From Demerol] Allergy Nausea & Verified 08/18/23 10:46 Vomiting Penicillins Allergy Nausea & Verified 08/18/23 10:46 Vomiting Physical Exam Vitals: Vital Signs Temp Pulse Pulse Pulse Resp BP Pulse Ox 08/19/23 17:38 97.7 F 99 18 106/74 96 08/19/23 16:12 93 112/74 95 08/19/23 15:57 89 111/77 94 L 08/19/23 15:27 88 113/79 93 L 08/19/23 15:12 87 118/84 95 08/19/23 14:58 87 119/85 100 08/19/23 14:43 87 139/85 96 08/19/23 14:27 82 118/77 92 L 08/19/23 14:12 95.2 F L 88 16 129/87 91 L 08/19/23 13:45 72 16 122/79 98 08/19/23 13:33 82 16 119/75 98 08/19/23 13:15 83 16 116/68 98 08/19/23 13:00 84 20 118/69 98 08/19/23 12:45 84 20 121/69 99 08/19/23 12:30 83 20 125/64 99 08/19/23 12:19 97 F L 86 20 120/64 99 08/19/23 07:25 70 16 112/75 99 08/19/23 06:10 99.1 F 68 18 132/70 08/19/23 01:32 98.3 F 88 102/71 95 08/18/23 20:00 97.9 F 77 135/86 98 Intake and Output 08/19/23 08/19/23 08/19/23 06:59 14:59 22:59 Intake Total 300 1850 Output Total 440 Balance 300 1410 Intake: IV 300 1850 Output: Urine 390 Estimated Blood Loss 50 Other: # Voids 1 # Bowel Movements 1 Weight 70.4 kg - Constitutional General appearance: no acute distress - EENT Eyes: anicteric sclerae ENT: hearing grossly normal - Neck Neck: no lymphadenopathy - Respiratory Respiratory: bilateral: CTA - Cardiovascular Rhythm: regular Heart sounds: normal: S1, S2 - Gastrointestinal General gastrointestinal: soft, tenderness - Integumentary Integumentary: no cyanotic, no jaundiced - Neurologic grossly intact - Musculoskeletal Musculoskeletal: strength equal bilaterally - Psychiatric Psychiatric: A&O x's 3 Results CBC & Chem 7: 08/20/23 07:03 08/20/23 07:03 Labs: Abnormal Lab Results - Last 24 Hours (Table) 08/19/23 08/19/23 Range/Units 15:41 15:41 RBC 3.59 L (3.80-5.40) m/uL Plt Count 147 L (150-450) k/uL Lymphocytes # 0.5 L (1.0-4.8) k/uL Sodium 136 L (137-145) mmol/L Chloride 109 H (98-107) mmol/L Carbon Dioxide 14 L (22-30) mmol/L Glucose 161 H (74-99) mg/dL Calcium 8.3 L (8.4-10.2) mg/dL AST 42 H (14-36) U/L Total Protein 5.6 L (6.3-8.2) g/dL Albumin 3.1 L (3.5-5.0) g/dL Assessment and Plan (1) Breast cancer metastasized to bone Current Visit: Yes Status: Acute Priority: High Code(s): C50.919 - MALIGNANT NEOPLASM OF UNSP SITE OF UNSPECIFIED FEMALE BREAST; C79.51 - SECONDARY MALIGNANT NEOPLASM OF BONE SNOMED Code(s): 64851147 (2) Diverticulitis with obstruction Current Visit: Yes Status: Acute Priority: High Code(s): K57.92 - DVTRCLI OF INTEST, PART UNSP, W/O PERF OR ABSCESS W/O BLEED; K56.609 - UNSP INTESTNL OBST, UNSP TO PARTIAL VERSUS COMPLETE OBST SNOMED Code(s): 647774018 (3) Abdominal pain Current Visit: Yes Status: Acute Priority: High Code(s): R10.9 - UNSPECIFIED ABDOMINAL PAIN SNOMED Code(s): 97497985 (4) Acute appendicitis Current Visit: Yes Status: Acute Priority: High Code(s): K35.80 - UNSPECIFIED ACUTE APPENDICITIS SNOMED Code(s): 70345764 Plan: Bowel obstruction/Diverticulosis: -Admitted for colon resection with Dr. Dobbins due to persistent obstruction related to diverticulosis. Patient underwent robotic laparoscopic surgery on 08/19, sigmoid colectomy was aborted due to intense abdominal adhesions. Patient underwent extensive lysis of adhesions. Appendectomy was also performed. -Cytology of peritoneal fluid was obtained with biopsies of the colon, omentum and appendix -Defer management to surgical team Metatstatic breast cancer: -History of left breast cancer, dx in 2010 and was treated in [place] and underwent bilateral mastectomies and was on Aromasin for 7 years -Patient reports she had recent recurrence with spinal metastasis. Patient follows with Dr. Mcmanus at [facility] -As stated above underwent robotic laparoscopic surgery on 08/19. Cytology of peritoneal fluid was obtained with biopsies of the colon, omentum and appendix. Path pending -Patient will f/u with primary oncologist upon discharge to further discuss pathology results, treatment options and goals of care Attests: I have seen and examined pt, performed H&P, developed impression and plan of care. Discussed with dictator. Agree with documentation, dictated as a scribe
[2023-08-20] MEDS ORDERED: LORazepam 0.5 MG TAB PO SCH (21:00)
[2023-08-21] MEDS ORDERED: FAMOTIDINE 20 MG TAB PO SCH (09:00)
--- NOTE | 2023-09-01 17:28 | P.PN ---
Progress Note - Text Progress Note Date: 09/01/23 Patient notified of results of pathology now demonstrating metastatic cancer within the abdomen. Patient will follow-up with her oncologist for further assessment
== END 2023-08-20 17:14 | disposition home or self-care (01) | DRG 336 ==
LOC: ORWHC2ENDO 10:09 → 4SSUR 11:13 → ORWHC2ENDO 08-19 13:07 → 4SSUR 08-19 13:07
PROVIDERS: ADMIT Surgery Plastic and Reconstructive Surgery; ATTEND Surgery Plastic and Reconstructive Surgery
PROC: 3E0H8KZ Introduction of Other Diagnostic Substance into Lower GI, Via Natural or Artificial Opening Endoscopic (ICD-10-PCS; 2023-08-18)
PROC: 0DJD8ZZ Inspection of Lower Intestinal Tract, Via Natural or Artificial Opening Endoscopic (ICD-10-PCS; 2023-08-18)
PROC: 0DNW4ZZ Release Peritoneum, Percutaneous Endoscopic Approach (ICD-10-PCS; principal; 2023-08-19 07:30)
PROC: 0DTJ4ZZ Resection of Appendix, Percutaneous Endoscopic Approach (ICD-10-PCS; principal; 2023-08-19 07:30)
PROC: 0DNE4ZZ Release Large Intestine, Percutaneous Endoscopic Approach (ICD-10-PCS; principal; 2023-08-19 07:30)
PROC: 8E0W4CZ Robotic Assisted Procedure of Trunk Region, Percutaneous Endoscopic Approach (ICD-10-PCS; principal; 2023-08-19 07:30)
PROC: 0DBU4ZX Excision of Omentum, Percutaneous Endoscopic Approach, Diagnostic (ICD-10-PCS; principal; 2023-08-19 07:30)
PROC: 0DBN4ZX Excision of Sigmoid Colon, Percutaneous Endoscopic Approach, Diagnostic (ICD-10-PCS; principal; 2023-08-19 07:30)
PROC: 0D9W4ZX Drainage of Peritoneum, Percutaneous Endoscopic Approach, Diagnostic (ICD-10-PCS; principal; 2023-08-19 07:30)
PROC: 0DJD8ZZ Inspection of Lower Intestinal Tract, Via Natural or Artificial Opening Endoscopic (ICD-10-PCS; principal; 2023-08-19 07:30)
DX: C78.5 Secondary malignant neoplasm of large intestine and rectum (principal); C79.51 Secondary malignant neoplasm of bone; K56.51 Intestinal adhesions [bands], with partial obstruction; K35.80 Unspecified acute appendicitis; C50.912 Malignant neoplasm of unspecified site of left female breast; E03.9 Hypothyroidism, unspecified; F41.1 Generalized anxiety disorder; I11.9 Hypertensive heart disease without heart failure; K21.9 Gastro-esophageal reflux disease without esophagitis; K52.9 Noninfective gastroenteritis and colitis, unspecified; N32.81 Overactive bladder; K64.8 Other hemorrhoids; R63.4 Abnormal weight loss; Z68.28 Body mass index [BMI] 28.0-28.9, adult; N73.6 Female pelvic peritoneal adhesions (postinfective); Z79.890 Hormone replacement therapy; Z79.899 Other long term (current) drug therapy; Z80.7 Family history of other malignant neoplasms of lymphoid, hematopoietic and related tissues; Z79.82 Long term (current) use of aspirin; Z87.19 Personal history of other diseases of the digestive system; Z90.13 Acquired absence of bilateral breasts and nipples; Z90.710 Acquired absence of both cervix and uterus; Z28.311 Partially vaccinated for COVID-19; Z88.0 Allergy status to penicillin
CPT/HCPCS: 45335; 64999; 80053; 85025; 86850; 86900; 86901; 87070; 87075; 87077; 87186; 87205; 88108; 88304; 88305; 88341; 88342

== ENCOUNTER 2023-08-25 07:47 | Emergency (ER) | payer MEDICARE, OTHER ==
[2023-08-25] MEDS ORDERED: ACETAMINOPHEN TAB 500 MG TAB PO STA (08:35)
--- NOTE | 2023-08-25 08:36 | ED ---
General Adult HPI - General Chief complaint: Shortness of Breath Stated complaint: sob possible pe Time Seen by Provider: 08/25/23 07:56 Source: patient, RN notes reviewed, old records reviewed Mode of arrival: ambulatory Limitations: no limitations - History of Present Illness Initial comments: Patient is a 68-year-old female who presents emergency department for her mild dyspnea and some pleuritic chest pain with concern for possible PE. There is no significant cardiac history. Does have a history of breast cancer as well as concern for current metastatic cancer. Recently had a laparoscopy with plans for sigmoid: Removal however due to scar tissue versus possible tumor, this was avoided. Patient did have an appendectomy at that time. This occurred last week. Patient states that since this morning, she has noticed some mild shortness of breath as well as pleuritic chest pain and some abdominal pain. Denies any fevers or chills. Denies nausea, vomiting, diarrhea that is new. Denies any coughing. Has no upper chest pain. Presents for further evaluation at this time. His concern for possible PE. Does have bilateral lower extremity edema which is secondary to recent increased fluids through the IV on last admission. - Related Data Home Medications Medication Instructions Recorded Confirmed Famotidine 40 mg PO BID 05/20/23 08/18/23 LORazepam [Ativan] 0.5 mg PO BID PRN 05/20/23 08/18/23 Levothyroxine Sodium [Synthroid] 75 mcg PO DAILY 05/20/23 08/18/23 Metoprolol Succinate (ER) [Toprol 50 mg PO DAILY 05/20/23 08/18/23 XL] Oxybutynin Xl [Ditropan XL] 5 mg PO DAILY 05/20/23 08/18/23 hydroCHLOROthiazide 25 mg PO DAILY 05/20/23 08/18/23 lisinopriL 40 mg PO DAILY 05/20/23 08/18/23 Aspirin [Adult Low Dose Aspirin EC] 81 mg PO DAILY 06/01/23 08/18/23 Previous Rx's Medication Instructions Recorded Acetaminophen Tab [Tylenol Tab] 1,000 mg PO Q6HR PRN #30 tablet 08/19/23 Ibuprofen [Motrin] 600 mg PO Q8HR PRN #30 tab 08/19/23 Simethicone [Gas-X] 125 mg PO AC-TID PRN #20 capsule 08/19/23 Ondansetron Odt [Zofran Odt] 4 mg PO Q6HR PRN 3 Days #10 tab 08/20/23 Ciprofloxacin HCl [Cipro] 500 mg PO Q12HR 10 Days #20 tab 08/25/23 Allergies Allergy/AdvReac Type Severity Reaction Status Date / Time meperidine [From Demerol] Allergy Nausea & Verified 08/25/23 07:54 Vomiting Penicillins Allergy Nausea & Verified 08/25/23 07:54 Vomiting Review of Systems ROS Statement: Those systems with pertinent positive or pertinent negative responses have been documented in the HPI. Review of Systems: CONST: Denies fever EYES: Denies blurry vision ENT: Denies nasal congestion C/V: Endorses pleuritic chest pain RESP: Endorses shortness of breath due to pleuritic chest pain GI: Denies abdominal pain : Denies dysuria SKIN: Denies rash. MSK: Denies joint pain. NEURO: Denies headache ROS Other: All systems not noted in ROS Statement are negative. Past Medical History Past Medical History: Cancer, GERD/Reflux, Hypertension, Thyroid Disorder Additional Past Medical History / Comment(s): breast, bilateral mastectomy, with reconstruction. 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 History of Any Multi-Drug Resistant Organisms: None Reported Past Surgical History: Breast Surgery, Section, Cholecystectomy, Heart Catheterization, Hysterectomy, Tubal Ligation Additional Past Surgical History / Comment(s): bilateral mastectomy, tumour to abdomen, cardiac clearance heart cath Past Anesthesia/Blood Transfusion Reactions: No Reported Reaction Past Psychological History: No Psychological Hx Reported Smoking Status: Never smoker Past Alcohol Use History: Occasional Past Drug Use History: Marijuana - Past Family History Mother Family Medical History: No Reported History, Cancer Additional Family Medical History / Comment(s): breast bladder mets to brain Father Family Medical History: Cancer Additional Family Medical History / Comment(s): multiple myeloma General Exam - General Exam Comments Initial Comments: General: Appears in no acute distress. HEAD: Normal with no signs of head trauma. EYES: PERRLA, EOMI, conjunctiva normal, no discharge. ENT: Hearing grossly intact, normal oropharynx. RESPIRATORY: Clear breath sounds bilaterally. No wheezes, rales, or rhonchi. No hypoxia. No increased work of breathing. C/V: Regular rate and rhythm. S1 and S2 auscultated, bilateral lower extremity edema, peripheral pulses 2+ and intact throughout ABD: Abd is soft, nondistended. Mild tenderness to palpation of the surgical incisions which appear uncomplicated. No guarding. No rebound tenderness. No peritoneal signs. EXT: Normal range of motion, no obvious deformity SKIN: No rashes or lesions observed on exposed skin. NEURO: Alert and oriented x 4. Limitations: no limitations Course Vital Signs 08/25/23 08/25/23 08/25/23 07:50 08:58 10:20 Temperature 98.2 F Pulse Rate 67 62 57 L Respiratory 18 18 20 Rate Blood Pressure 135/87 149/95 143/88 O2 Sat by Pulse 96 94 L 96 Oximetry 08/25/23 11:40 Temperature 98.6 F Pulse Rate 66 Respiratory 20 Rate Blood Pressure 149/93 O2 Sat by Pulse 96 Oximetry Medical Decision Making - Medical Decision Making Was pt. sent in by a medical professional or institution (, PA, [facility] [facility], urgent care, hospital, or snf...) When possible be specific @ -No Did you speak to anyone other than the patient for history (EMS, parent, family, police, friend...)? What history was obtained from this source @ -No Did you review nursing and triage notes (agree or disagree)? Why? @ -I reviewed and agree with nursing and triage notes Were old charts reviewed (outside hosp., previous admission, EMS record, old EKG, old radiological studies, urgent care reports/EKG's, snf records)? Report findings @ -Old charts reviewed Differential Diagnosis (chest pain, altered mental status, abdominal pain women, abdominal pain men, vaginal bleeding, weakness, fever, dyspnea, syncope, headache, dizziness, GI bleed, back pain, seizure, CVA, palpatations, mental health, musculoskeletal)? @ -Differential Dyspnea: Coronary syndrome, arrhythmia, tamponade, asthma, COPD, pulmonary embolism, pneumonia, pneumothorax, pulmonary effusion, anaphylaxis, diabetic ketoacidosis, flailed chest, pulmonary contusion, diaphragmatic rupture, anemia, neuromuscular, this is not meant to be an all-inclusive list. EKG interpreted by me (3pts min.). @ -As above X-rays interpreted by me (1pt min.). @ - None Done CT interpreted by me (1pt min.). @ -CT PE negative for any obvious pulmonary embolism. CT abdomen and pelvis reveals a phlegmon near the site of the recent appendectomy. No obvious abscess. There is some interpretative peritoneal air but likely secondary to recent surgery. Neoplastic process redemonstrated in the sigmoid colon. U/S interpreted by me (1pt. min.). @ -None done What testing was considered but not performed or refused? (CT, X-rays, U/S, labs)? Why? @ -None What meds were considered but not given or refused? Why? @ -None Did you discuss the management of the patient with other professionals (professionals i.e. DrClara, PA, [employer], lab, RT, psych nurse, social services specialist, nurse tech, teacher, loan workout officer, supportive employment case manager)? Give summary @ -Discussed with Dr. Dobbins, and wants the patient started on ciprofloxacin orally and patient in follow-up with her in the office next week. We discussed imaging as well as lab results Was smoking cessation discussed for >3mins.? @ -No Was critical care preformed (if so, how long)? @ -No Were there social determinants of health that impacted care today? How? (Homelessness, low income, unemployed, alcoholism, drug addiction, transportation, low edu. Level, literacy, decrease access to med. care, long term, rehab)? @ -No Was there de-escalation of care discussed even if they declined (Discuss DNR or withdrawal of care, Hospice)? DNR status @ -No What co-morbidities impacted this encounter? (DM, HTN, Smoking, COPD, CAD, Cancer, CVA, ARF, Chemo, Hep., AIDS, mental health diagnosis, sleep apnea, morbid obesity)? @ -None Was patient admitted / discharged? Hospital course, mention meds given and route, prescriptions, significant lab abnormalities, going to OR and other pertinent info. @ -Based on the patient's presentation and physical exam, I'm concerned for her pleuritic chest pain with her history of PE and cancer. Wells score for PE is moderate at 3 points. vital signs within except for limits. Discussed with her we will obtain CT chest PE as well as CT abdomen and pelvis with a recent abdominal surgery. Dyspnea labs also be obtained. She was in agreement this plan. She'll be given Tylenol for pain. EKG showed no signs of acute ischemia.Patient's laboratory studies relatively unremarkable. Slight anemia however patient is recent surgery. Remainder of the labs are within acceptable limits. Patient's imaging negative for PE. CT abdomen and pelvis that show phlegmonous changes at the site of the recent appendectomy. Also redemonstrates the neoplastic process in the sigmoid colon. No other obvious findings at this time. Findings are consistent with recent surgery as well including a small amount of air. I did the patient. I spoke with her surgeon, Dr. Ugarte who recommended patient be started on oral ciprofloxacin and can follow-up with her in the office. Patient did have recent wound cultures which did grow bacteria susceptible to this antibiotic. Discussed this with the patient she was in agreement this plan. She was given a dose of ciprofloxacin prior to discharge. I will provide the patient with a prescription for ciprofloxacin. I instructed the patient to follow up with their PCP in the next 1-3 days. I explained that the patient should return to the emergency department if they experience any worsening symptoms. Strict return precautions were discussed with the patient. The patient expressed understanding of these instructions. I answered all que stions that the patient had. The patient was discharged home in good condition with their prescriptions and follow up information. Undiagnosed new problem with uncertain prognosis? @ -No Drug Therapy requiring intensive monitoring for toxicity (Heparin, Nitro, Insulin, Cardizem)? @ -No Were any procedures done? @ -No Diagnosis/symptom? @ -Phlegmon, recent appendectomy Acute, or Chronic, or Acute on Chronic? @ -Acute Uncomplicated (without systemic symptoms) or Complicated (systemic symptoms)? @ -Complicated Side effects of treatment? @ -none Exacerbation, Progression, or Severe Exacerbation] @ -no Poses a threat to life or bodily function? @ -Possibly, if untreated - Lab Data Result diagrams: 08/25/23 08:45 08/25/23 08:45 Lab Results 08/25/23 08/25/23 08/25/23 Range/Units 08:45 08:45 08:45 WBC 3.7 L (3.8-10.6) k/uL RBC 3.06 L (3.80-5.40) m/uL Hgb 10.0 L D (11.4-16.0) gm/dL Hct 29.8 L (34.0-46.0) % MCV 97.3 (80.0-100.0) fL MCH 32.8 (25.0-35.0) pg MCHC 33.7 (31.0-37.0) g/dL RDW 13.5 (11.5-15.5) % Plt Count 202 (150-450) k/uL MPV 7.8 Neutrophils % 54 % Lymphocytes % 28 % Monocytes % 8 % Eosinophils % 8 % Basophils % 0 % Neutrophils # 2.0 (1.3-7.7) k/uL Lymphocytes # 1.0 (1.0-4.8) k/uL Monocytes # 0.3 (0-1.0) k/uL Eosinophils # 0.3 (0-0.7) k/uL Basophils # 0.0 (0-0.2) k/uL PT 10.9 (10.0-12.5) sec INR 1.0 (<1.2) APTT 25.0 (22.0-30.0) sec Sodium (137-145) mmol/L Potassium (3.5-5.1) mmol/L Chloride (98-107) mmol/L Carbon Dioxide (22-30) mmol/L Anion Gap mmol/L BUN (7-17) mg/dL Creatinine (0.52-1.04) mg/dL Est GFR (CKD-EPI)AfAm (>60 ml/min/1.73 sqM) Est GFR (CKD-EPI)NonAf (>60 ml/min/1.73 sqM) Glucose (74-99) mg/dL Calcium (8.4-10.2) mg/dL Magnesium (1.6-2.3) mg/dL Total Bilirubin (0.2-1.3) mg/dL AST (14-36) U/L ALT (4-34) U/L Alkaline Phosphatase (38-126) U/L Troponin I (0.000-0.034) ng/mL NT-Pro-B Natriuret Pep pg/mL Total Protein (6.3-8.2) g/dL Albumin (3.5-5.0) g/dL Urine Color Colorless Urine Appearance Clear (Clear) Urine pH 6.0 (5.0-8.0) Ur Specific [place] 1.015 (1.001-1.035) Urine Protein Negative (Negative) Urine Glucose (UA) Negative (Negative) Urine Ketones Negative (Negative) Urine Blood Negative (Negative) Urine Nitrite Negative (Negative) Urine Bilirubin Negative (Negative) Urine Urobilinogen 0.2 (<2.0) mg/dL Ur Leukocyte Esterase Negative (Negative) 08/25/23 08/25/23 Range/Units 08:45 08:45 WBC (3.8-10.6) k/uL RBC (3.80-5.40) m/uL Hgb (11.4-16.0) gm/dL Hct (34.0-46.0) % MCV (80.0-100.0) fL MCH (25.0-35.0) pg MCHC (31.0-37.0) g/dL RDW (11.5-15.5) % Plt Count (150-450) k/uL MPV Neutrophils % % Lymphocytes % % Monocytes % % Eosinophils % % Basophils % % Neutrophils # (1.3-7.7) k/uL Lymphocytes # (1.0-4.8) k/uL Monocytes # (0-1.0) k/uL Eosinophils # (0-0.7) k/uL Basophils # (0-0.2) k/uL PT (10.0-12.5) sec INR (<1.2) APTT (22.0-30.0) sec Sodium 142 (137-145) mmol/L Potassium 3.7 (3.5-5.1) mmol/L Chloride 102 (98-107) mmol/L Carbon Dioxide 32 H (22-30) mmol/L Anion Gap 8 mmol/L BUN 8 (7-17) mg/dL Creatinine 0.83 (0.52-1.04) mg/dL Est GFR (CKD-EPI)AfAm 85 (>60 ml/min/1.73 sqM) Est GFR (CKD-EPI)NonAf 74 (>60 ml/min/1.73 sqM) Glucose 91 (74-99) mg/dL Calcium 8.6 (8.4-10.2) mg/dL Magnesium 1.6 (1.6-2.3) mg/dL Total Bilirubin 0.4 (0.2-1.3) mg/dL AST 35 (14-36) U/L ALT 10 (4-34) U/L Alkaline Phosphatase 65 (38-126) U/L Troponin I 0.015 (0.000-0.034) ng/mL NT-Pro-B Natriuret Pep 855 pg/mL Total Protein 5.2 L (6.3-8.2) g/dL Albumin 2.8 L (3.5-5.0) g/dL Urine Color Urine Appearance (Clear) Urine pH (5.0-8.0) Ur Specific [place] (1.001-1.035) Urine Protein (Negative) Urine Glucose (UA) (Negative) Urine Ketones (Negative) Urine Blood (Negative) Urine Nitrite (Negative) Urine Bilirubin (Negative) Urine Urobilinogen (<2.0) mg/dL Ur Leukocyte Esterase (Negative) - EKG Data -: EKG Interpreted by Me EKG Comments: 12-lead Electrocardiogram Interpretation Note EKG was reviewed and interpreted by myself. 12-lead ECG performed at 0804 is interpreted by me as revealing sinus bradycardia at a rate of 59 beats per minute. [place] is normal. NV interval is 168 ms, QRS duration is 94 ms, QTc is 421 ms.. There were no ST or T wave abnormalities to suggest myocardial ischemia or injury. R wave progression across the precordium was delayed. By my interpretation this EKG is non-diagnostic for acute ischemia. Disposition Clinical Impression: Phlegmon Disposition: HOME SELF-CARE Condition: Good Prescriptions: Ciprofloxacin HCl [Cipro] 500 mg PO Q12HR 10 Days #20 tab Is patient prescribed a controlled substance at d/c from ED?: No Referrals: Verna Barber DO [Primary Care Provider] - 1-2 days Sally Dobbins MD [STAFF PHYSICIAN] - 1-2 days Time of Disposition: 10:52
[2023-08-25 09:14] LABS: Basophils % (A) 0 %; Eosinophils # (A) 0.3 k/uL (0-0.7); Eosinophils % (A) 8 %; HCT 29.8 % (34.0-46.0); Lymphocytes % (A) 28 %; MCH 32.8 pg (25.0-35.0); MCHC 33.7 g/dL (31.0-37.0); MCV 97.3 fL (80.0-100.0); Mean Platelet Volume 7.8; Monocytes # (A) 0.3 k/uL (0-1.0); Monocytes % (A) 8 %; Neutrophils % (A) 54 %; Platelet Count 202 k/uL (150-450); RBC 3.06 m/uL (3.80-5.40); RDW 13.5 % (11.5-15.5); WBC 3.7 k/uL (3.8-10.6)
[2023-08-25 09:23] LABS: Prothrombin Time 10.9 sec (10.0-12.5)
[2023-08-25 09:31] LABS: ALT 10 U/L (4-34); AST 35 U/L (14-36); African American GFR (CKD) 85 (>60 ml/min/1.73 sqM); Albumin 2.8 g/dL (3.5-5.0); Alkaline Phosphatase 65 U/L (38-126); Anion Gap 8 mmol/L; Blood Urea Nitrogen 8 mg/dL (7-17); Calcium 8.6 mg/dL (8.4-10.2); Carbon Dioxide 32 mmol/L (22-30); Chloride 102 mmol/L (98-107); Glucose 91 mg/dL (74-99); Magnesium 1.6 mg/dL (1.6-2.3); Non-African American GFR(CKD) 74 (>60 ml/min/1.73 sqM); Potassium 3.7 mmol/L (3.5-5.1); Sodium 142 mmol/L (137-145); Total Bilirubin 0.4 mg/dL (0.2-1.3); Total Protein 5.2 g/dL (6.3-8.2)
[2023-08-25 09:40] LABS: NT-Pro-B-Type Natriuretic Pept 855 pg/mL
[2023-08-25 09:49] LABS: Appearance,Urine Clear (Clear); Bilirubin,Urine Negative (Negative); Blood,Urine Negative (Negative); Color,Urine Colorless; Glucose,Urine (UA) Negative (Negative); Ketones,Urine Negative (Negative); Protein,Urine Negative (Negative); Specific Gravity,Urine 1.015 (1.001-1.035)
[2023-08-25 09:50] LABS: Leukocyte Esterase,Urine Negative (Negative); Nitrite,Urine Negative (Negative); Urobilinogen,Urine 0.2 mg/dL (<2.0)
[2023-08-25 10:29] VITALS: RESP 20
--- NOTE | 2023-08-25 10:38 | CT ---
EXAMINATION TYPE: CT abdomen pelvis w con DATE OF EXAM: 08/25/2023 COMPARISON: 05/21/2023 HISTORY: Chest pain with SOB, suspect PE CT DLP: 1211.4 mGycm Automated exposure control for dose reduction was used. CONTRAST: CT scan of the abdomen pelvis is performed without and with IV Contrast, patient injected with 100 ml mL of Isovue 370. FINDINGS- LUNG BASES- postcholecystectomy changes with mild intra and extrahepatic biliary ductal dilation. Sm all amount of air in the duct may be related to a patulous sphincter of [place]. Trace of pericardial fl uid. LIVER/GB- postcholecystectomy changes with mild intra and extrahepatic biliary ductal dilation. Sma ll amount of air in the duct may be related to a patulous sphincter of [place] PANCREAS- No gross abnormality is seen. SPLEEN- No gross abnormality is seen. ADRENALS- No gross abnormality is seen. KIDNEYS/BLADDER-bilateral simple appearing renal cysts Bosniak classification I. No hydronephrosis or nephrolithiasis. Bladder wall thickening correlate for mild cystitis. BOWEL- there is a suture line along the cecum is likely in the bases recent appendectomy with a poor ly defined 3 cm fluid collection likely representing phlegmon. A developing abscess within the differ ential diagnosis. There is interval marked increase in the stranding and inflammatory change within t he mesentery greatest within the right abdomen near the surgical line. This may partially be postsurg ical but recommend correlation peritonitis. There certainly is a contribution within the right lower quadrant from the suspected phlegmon. There is a hiatal hernia. There remains a diffuse long segment wall thickening of the sigmoid colon which could be related to c olitis or neoplastic. LYMPH NODES- No greater than 1cm abdominal or pelvic lymph nodes are appreciated. OSSEOUS STRUCTURES- diffuse patchy mineralization of the bone compatible with widespread bony metast ases. Postsurgical changes are seen involving the vertebral column. OTHER- there is bilateral breast implant surgery. There is subcutaneous anasarca and a few bubbles o f subcutaneous air likely related to patient's recent surgery. There are also a couple bubbles of free air seen within the anterior pelvis also likely postsurgical but should be correlated clinically. Aorta normal caliber. IMPRESSION- 1. Diffuse inflammation within the mesentery and abdomen with a ill-defined collection adjacent to th e suture line in the cecum suggesting recent appendectomy. Differential diagnosis would include a phl egmon or developing abscess. 2. Correlate for peritonitis. 3. Small amount of free intraperitoneal air most likely postsurgical given recent surgery. 4. Correlate for a sigmoid colitis versus neoplastic process. 5. Diffuse osseous metastasis.
--- NOTE | 2023-08-25 10:40 | CT ---
EXAMINATION TYPE: CT chest angio for PE CT DLP: 1211.4 mGycm, Automated exposure control for dose reduction was used. DATE OF EXAM: 08/25/2023 10:14 AM COMPARISON: 07/26/2023. CLINICAL INDICATION:Female, 68 years old with history of cancer, hx PE. eval for PE; Chest pain with SOB, suspect PE TECHNIQUE/CONTRAST: CTA scan of the thorax is performed without and with IV Contrast, patient injected with 100 ml mL of Isovue 370, MIP images are created and reviewed these are created on a separate workstation.. FINDINGS: Pulmonary Artery: There is no evidence for a filling defect within the pulmonary vasculature to sugge st acute pulmonary embolism. The pulmonary artery is of normal size. Lungs/Pleura: No evidence of focal consolidation, pleural effusion or pneumothorax. Airway: Large airways are patent. Heart: Heart is within normal limits for size. Vasculature: No evidence of aortic aneurysm. Mediastinum: No gross evidence of adenopathy. Musculoskeletal: No acute osseous abnormalities Soft Tissues: Bilateral breast implants appear intact. Lower neck: No significant findings. Upper Abdomen: Small hiatal hernia. The gallbladder appears surgically absent. Facet joint changes in the upper abdomen. IMPRESSION: 1. No evidence of pulmonary embolism. 2. Fat stranding changes in the upper abdomen partially visualized, please see dedicated CT abdomen p rayne and jenna for findings
[2023-08-25] MEDS ORDERED: CIPROFLOXACIN HCL 500 MG TAB PO STA (11:01)
[2023-08-25 11:44] VITALS: BP 149/93; PULSE 66; TEMP 98.6
== END 2023-08-25 11:43 | disposition home or self-care (01) ==
LOC: EC 07:47
DX: H04.319 Phlegmonous dacryocystitis of unspecified lacrimal passage (principal); R00.1 Bradycardia, unspecified; K21.9 Gastro-esophageal reflux disease without esophagitis; I10 Essential (primary) hypertension; E07.9 Disorder of thyroid, unspecified; F12.90 Cannabis use, unspecified, uncomplicated; Z88.0 Allergy status to penicillin; Z88.5 Allergy status to narcotic agent; Z79.890 Hormone replacement therapy; Z79.899 Other long term (current) drug therapy
CPT/HCPCS: 36415; 93005; 83880; 80053; 83735; 84484; 85025; 85610; 85730; 81003; 71275; 74177; 99285; Q9967

== ENCOUNTER → 2023-12-07 | Outpatient (CLI) | payer MEDICARE, OTHER ==
[2023-12-07 16:39] LABS: ALT 77 U/L (8-44); AST 25 U/L (13-35); Chol/HDL Ratio 3.63 Ratio; LDL Cholesterol,Calculated 81.9 mg/dL (0.0-131.0); VLDL Calculation 19.54 mg/dL (5.00-40.00)
== END | disposition home or self-care (01) ==
LOC: LABWHC1 10:21
PROVIDERS: ATTEND Internal Medicine Interventional Cardiology
DX: E78.2 Mixed hyperlipidemia (principal)
CPT/HCPCS: 36415; 80061; 84450; 84460

== ENCOUNTER → 2024-01-24 | Outpatient (CLI) | payer MEDICARE, OTHER ==
[2024-01-24 18:51] LABS: Basophils # (A) 0.07 X 10*3/uL (0.00-0.10); Basophils % (A) 1.9 %; Eosinophils # (A) 0.09 X 10*3/uL (0.04-0.35); Eosinophils % (A) 2.4 %; Lymphocytes % (A) 39.9 %; MCH 35.6 pg (27.0-32.0); MCHC 32.4 g/dL (32.0-37.0); Mean Platelet Volume 8.7 FL (9.5-12.2); Monocytes # (A) 0.48 X 10*3/uL (0.20-1.00); Monocytes % (A) 12.8 %; NRBC Per 100 WBC 0 X 10*3/uL (0.00-0.01); Neutrophils # (A) 1.61 X 10*3/uL (1.80-7.70); Neutrophils % (A) 42.7 %; Platelet Count 244 X 10*3/uL (140-440); RBC 3.09 X 10*6/uL (4.10-5.20); RDW 16.6 % (11.5-14.5); WBC 3.76 X 10*3/uL (4.50-10.00)
[2024-01-24 20:25] LABS: ALT 10 U/L (8-44); AST 29 U/L (13-35); Albumin 4.3 g/dL (3.8-4.9); Albumin/Globulin Ratio 1.95 Ratio (1.60-3.17); Alkaline Phosphatase 100 U/L (41-126); BUN/Creat Ratio 11.27 Ratio (12.00-20.00); Blood Urea Nitrogen 12.4 mg/dL (9.0-27.0); Calcium 8.9 mg/dL (8.7-10.3); Carbon Dioxide 24.1 mmol/L (21.6-31.8); Chloride 105 mmol/L (96-109); Globulin 2.2 g/dL (1.6-3.3); Glucose 78 mg/dL (70-110); Potassium 4.2 mmol/L (3.5-5.5); Sodium 141 mmol/L (135-145); Total Bilirubin 0.4 mg/dL (0.3-1.2); Total Protein 6.5 g/dL (6.2-8.2)
== END | disposition home or self-care (01) ==
LOC: LABWHC1 10:35
PROVIDERS: ATTEND Internal Medicine
DX: C50.912 Malignant neoplasm of unspecified site of left female breast (principal)
CPT/HCPCS: 36415; 80053; 85025; 86300

== ENCOUNTER 2024-04-25 07:00 | Day surgery (SDC) | payer MEDICARE, OTHER ==
[2024-04-25] MEDS ORDERED: CYCLOPENTOLATE 1% OPHTH SOLN 2 ML BTL ONE (08:10)
[2024-04-25] MEDS ORDERED: PHENYLEPHRINE 2.5% OPHTH DRP 2ML ONE (08:10)
[2024-04-25] MEDS ORDERED: BALANCED SALT IRRIG SOLN COMB2 15 ML IRRIG.SOLN ONE (08:10)
[2024-04-25] MEDS ORDERED: BALANCED SALT IRRIG SOLN COMB2 500 ML ONE (08:10)
[2024-04-25] MEDS ORDERED: MOXIFLOXACIN HCL 0.5% DROPS 3 ML BTL ONE (08:10)
[2024-04-25] MEDS ORDERED: LACTATED RINGERS 1,000 ML BAG ONE (08:10)
[2024-04-25] MEDS ORDERED: LIDOCAINE 1% PF 10 MG/ML (5 ML AMP) ONE (08:10)
[2024-04-25] MEDS ORDERED: TIMOLOL 0.5% OPHTH SOLN (PF) 0.2 ML DROPERETTE ONE (08:10)
[2024-04-25] MEDS ORDERED: ONDANSETRON 4 MG/2 ML VIAL ONE (08:33)
[2024-04-25] MEDS ORDERED: fentaNYL (PF) 50 MCG/ML 2 ML AMP ONE (09:08)
[2024-04-25] MEDS ORDERED: MIDAZOLAM 2 MG/2 ML VIAL ONE (09:08)
--- NOTE | 2024-05-04 15:54 | OP ---
OPERATIVE REPORT DATE OF SERVICE : 04/25/2024 PREOPERATIVE DIAGNOSIS: Nuclear sclerosis. POSTOPERATIVE DIAGNOSIS: Nuclear sclerosis. OPERATION: Phacoemulsification of cataract and interocular lens implant, left eye. ESTIMATED BLOOD LOSS: Zero. SPECIMEN TAKEN: None. NARRATIVE: After obtaining the appropriate consent, the patient was brought to the operating room where the patient was placed under cardiac monitoring and prepped and draped in the usual sterile manner. At the 5 o'clock position, a 15-degree super sharp blade was used to create a paracentesis followed by instillation of 1% Xylocaine MPF 50:50 mix with BSS into the anterior chamber. This was followed by Amvisc viscoelastic to stabilize the anterior chamber. At the 3 o'clock position a self-sealing corneal flap incision was created using 2.8 mm khari keratome. A cystotome was used to initiate a continuous tear capsulorrhexis which was completed with the Utrata forceps. A Binkhorst cannula was used to hydrodissect the lens nucleus followed by hydrodelineation. Phacoemulsification of the lens was performed utilizing phacochop in 8.30 seconds at 9.3% power. The remaining cortical material was removed using the irrigation aspiration mode followed by additional 1% Xylocaine MPF into the anterior chamber followed by viscoelastic to stabilize the capsular bag. A [employer]ch [employer] Lomb MX60E 22.0 diopters posterior chamber lens was placed into the capsular bag without difficulty. The remaining viscoelastic material was removed from the anterior chamber with the irrigation/aspiration. Balanced salt solution was used to normalize the intraocular pressure. The incision was checked for watertight integrity. The patient then received 2 drops of 0.5% timolol followed by 2 drops Vigamox, was lightly patched and shielded in the usual manner. There were no complications from the procedure. The patient tolerated the procedure well and was returned to recovery in good condition. MMODL / IJN: [id number] /
== END 2024-04-25 10:11 ==
LOC: OR 07:00
PROVIDERS: ATTEND Ophthalmology
DX: H25.12 Age-related nuclear cataract, left eye

== ENCOUNTER 2024-05-09 09:45 | Day surgery (SDC) | payer MEDICARE, OTHER ==
[~2024-05-09 09:45] MED LIST changes: -Antibiotics per Pharmacy 1 EACH MISC MISCELLANE PRN; -HEPARIN SODIUM,PORCINE/PF 5,000 UNIT/0.5 ML SYRINGE SQ PRN; -SODIUM CHLORIDE 0.9% 2,000 ML IV ONE; +TETRACAINE 0.5% OPHTH (PF) DROPS 4 ML BTL OP PRN
[2024-05-09] MEDS: IV FLUID CONTINUATION 1,000 ML IV ONE (10:00)
[2024-05-09 10:09] VITALS: RESP 16; TEMP 97.6
[2024-05-09] MEDS: PHENYLEPHRINE 2.5% OPHTH DRP 2ML OP PRN (10:11)
[2024-05-09] MEDS: CYCLOPENTOLATE 1% OPHTH SOLN 2 ML BTL OP PRN (10:15)
[2024-05-09] MEDS: LIDOCAINE 1% (10MG/ML) FOR IV START INTRADERMA PRN (10:21)
[2024-05-09] MEDS: LACTATED RINGERS 1,000 ML IV SCH (10:29)
[2024-05-09] MEDS: ONDANSETRON 4 MG/2 ML VIAL IVP STA (10:36)
[2024-05-09] MEDS ORDERED: MIDAZOLAM 2 MG/2 ML VIAL ONE (11:25)
[2024-05-09] MEDS ORDERED: fentaNYL (PF) 50 MCG/ML 2 ML AMP ONE (11:25)
[2024-05-09] MEDS: EPINEPHrine (PF) 0.3 ML in BALANCED SALT IRRIG SOLN COMB2 500 ML IRRIGATION ONE (11:36)
[2024-05-09] MEDS: BALANCED SALT IRRIG SOLN COMB2 15 ML IRRIG.SOLN IRRIGATION ONE (11:39)
[2024-05-09] MEDS: HYALURONATE SODIUM INTRAOCULAR 1 EACH SYRINGE (12MG/ML) INTRAOCULA ONE (11:39)
[2024-05-09] MEDS: TIMOLOL 0.5% OPHTH DROPS 5 ML BTL OP PRN (11:40)
[2024-05-09] MEDS: MOXIFLOXACIN HCL 0.5% DROPS 3 ML BTL OP PRN (11:40)
[2024-05-09] MEDS: LIDOCAINE 1% (PF) 10MG/ML VIAL MISCELLANE ONE (11:40)
--- NOTE | 2024-05-09 11:57 | P.OP ---
Date of Procedure: 05/09/24 Preoperative Diagnosis: NS Postoperative Diagnosis: same Procedure(s) Performed: PIOL, OD Implants: MX60E 21.50 Anesthesia: MAC Surgeon: Elias Chavis Pathology: none sent Condition: stable Disposition: same day Indications for Procedure: blurry vision Operative Findings: no complications
[2024-05-09 12:26] VITALS: BP 150/81; PULSE 47
--- NOTE | 2024-05-16 15:25 | OP ---
OPERATIVE REPORT DATE OF SERVICE : 05/09/2024 PREOPERATIVE DIAGNOSIS: Nuclear sclerosis, right eye. POSTOPERATIVE DIAGNOSIS: Nuclear sclerosis, right eye. OPERATION: Phacoemulsification of cataract and interocular lens implant, left eye. ESTIMATED BLOOD LOSS: Zero. SPECIMEN TAKEN: None. NARRATIVE: After obtaining the appropriate consent, the patient was brought to the operating room where the patient was placed under cardiac monitoring and prepped and draped in the usual sterile manner. At the 11 o'clock position, a 15-degree super sharp blade was used to create a paracentesis followed by instillation of 1% Xylocaine MPF 50:50 mix with BSS into the anterior chamber. This was followed by Amvisc viscoelastic to stabilize the anterior chamber. At the 9 o'clock position a self-sealing corneal flap incision was created using 2.8 mm khari keratome. A cystotome was used to initiate a continuous tear capsulorrhexis which was completed with the Utrata forceps. A Binkhorst cannula was used to hydrodissect the lens nucleus followed by hydrodelineation. Phacoemulsification of the lens was performed utilizing phacochop in 39.20 seconds at 10% power. The remaining cortical material was removed using the irrigation aspiration mode followed by additional 1% Xylocaine MPF into the anterior chamber followed by viscoelastic to stabilize the capsular bag. A [employer]ch [employer] Lomb MX60E 21.5 diopters posterior chamber lens was placed into the capsular bag without difficulty. The remaining viscoelastic material was removed from the anterior chamber with the irrigation/aspiration. Balanced salt solution was used to normalize the intraocular pressure. The incision was checked for watertight integrity. The patient then received 2 drops of 0.5% timolol followed by 2 drops Vigamox, was lightly patched and shielded in the usual manner. There were no complications from the procedure. The patient tolerated the procedure well and was returned to recovery in good condition. MMODL / IJN: [id number] /
== END 2024-05-09 12:53 | disposition home or self-care (01) ==
LOC: OR 09:45
PROVIDERS: ATTEND Ophthalmology
DX: H25.11 Age-related nuclear cataract, right eye

== ENCOUNTER → 2024-09-18 | Outpatient (CLI) | payer MEDICARE, OTHER ==
[2024-09-18 19:36] LABS: ALT 18 U/L (8-44); AST 28 U/L (13-35); Albumin 4.2 g/dL (3.8-4.9); Alkaline Phosphatase 38 U/L (41-126); BUN/Creat Ratio 14.55 Ratio (12.00-20.00); Calcium 8.7 mg/dL (8.7-10.3); Carbon Dioxide 25.1 mmol/L (21.6-31.8); Chloride 109 mmol/L (96-109); Globulin 2.1 g/dL (1.6-3.3); Glucose 92 mg/dL (70-110); Potassium 4.4 mmol/L (3.5-5.5); Sodium 143 mmol/L (135-145); Total Bilirubin 0.4 mg/dL (0.3-1.2); Total Protein 6.3 g/dL (6.2-8.2)
[2024-09-18 20:04] LABS: Basophils # (A) 0.04 X 10*3/uL (0.00-0.10); Basophils % (A) 1.3 %; Eosinophils # (A) 0.04 X 10*3/uL (0.04-0.35); Eosinophils % (A) 1.3 %; HCT 33.8 % (37.2-46.3); HGB 10.9 g/dL (12.0-15.0); Immature Grans, Automated 0 %; Lymphocytes % (A) 44.4 %; MCH 36.2 pg (27.0-32.0); MCHC 32.2 g/dL (32.0-37.0); MCV 112.3 FL (80.0-97.0); Mean Platelet Volume 9.3 FL (9.5-12.2); Monocytes # (A) 0.33 X 10*3/uL (0.20-1.00); Monocytes % (A) 10.5 %; NRBC Per 100 WBC 0 X 10*3/uL (0.00-0.01); Neutrophils # (A) 1.34 X 10*3/uL (1.80-7.70); Neutrophils % (A) 42.5 %; Platelet Count 226 X 10*3/uL (140-440); RBC 3.01 X 10*6/uL (4.10-5.20); RDW 13.6 % (11.5-14.5); WBC 3.15 X 10*3/uL (4.50-10.00)
[2024-09-18 20:08] LABS: Cancer Antigen 153 87.8 U/mL (0.0-32.3)
== END | disposition home or self-care (01) ==
LOC: LABWHC1 12:55
PROVIDERS: ATTEND Internal Medicine
DX: C50.912 Malignant neoplasm of unspecified site of left female breast (principal)
CPT/HCPCS: 36415; 80053; 82607; 85025; 86300

== ENCOUNTER → 2024-12-18 | Outpatient (CLI) | payer MEDICARE, OTHER ==
[2024-12-18 15:22] LABS: HCT 34.3 % (37.2-46.3); HGB 11.3 g/dL (12.0-15.0); MCH 36.8 pg (27.0-32.0); MCHC 32.9 g/dL (32.0-37.0); MCV 111.7 FL (80.0-97.0); Mean Platelet Volume 9.3 FL (9.5-12.2); NRBC Per 100 WBC 0 X 10*3/uL (0.00-0.01); Platelet Count 186 X 10*3/uL (140-440); RBC 3.07 X 10*6/uL (4.10-5.20); RDW 14.5 % (11.5-14.5); WBC 2.34 X 10*3/uL (4.50-10.00)
[2024-12-18 15:48] LABS: NT-Pro-B-Type Natriuretic Pept 91 pg/mL (0-125)
[2024-12-18 16:12] LABS: Basophils # (A) 0.04 X 10*3/uL (0.00-0.10); Basophils % (A) 1.7 %; Elliptocytes 2+ (None Seen); Eosinophils # (A) 0.02 X 10*3/uL (0.04-0.35); Eosinophils % (A) 0.9 %; Macrocytosis (M) 3+ (None Seen); Monocytes # (A) 0.13 X 10*3/uL (0.20-1.00); Monocytes % (A) 5.6 %; Neutrophils # (A) 1.04 X 10*3/uL (1.80-7.70); Neutrophils % (A) 44.4 %
[2024-12-18 16:14] LABS: ALT 12 U/L (8-44); AST 23 U/L (13-35); Albumin 4.3 g/dL (3.8-4.9); Albumin/Globulin Ratio 2.05 Ratio (1.60-3.17); Alkaline Phosphatase 32 U/L (41-126); BUN/Creat Ratio 15.36 Ratio (12.00-20.00); Blood Urea Nitrogen 16.9 mg/dL (9.0-27.0); Calcium 8.8 mg/dL (8.7-10.3); Carbon Dioxide 23.3 mmol/L (21.6-31.8); Chloride 108 mmol/L (96-109); Chol/HDL Ratio 1.92 Ratio; Globulin 2.1 g/dL (1.6-3.3); Glucose 95 mg/dL (70-110); LDL Cholesterol,Calculated 49.8 mg/dL (0.0-131.0); Potassium 4.6 mmol/L (3.5-5.5); Sodium 144 mmol/L (135-145); T4, Free (Free Thyroxine) 1.65 ng/dL (0.80-1.80); Total Bilirubin 0.5 mg/dL (0.3-1.2); Total Protein 6.4 g/dL (6.2-8.2); VLDL Calculation 15.26 mg/dL (5.00-40.00)
== END | disposition home or self-care (01) ==
LOC: LABWHC1 08:44
PROVIDERS: ATTEND Internal Medicine Interventional Cardiology
DX: I10 Essential (primary) hypertension (principal); K21.9 Gastro-esophageal reflux disease without esophagitis; E03.9 Hypothyroidism, unspecified; E78.2 Mixed hyperlipidemia; R06.02 Shortness of breath
CPT/HCPCS: 36415; 80053; 80061; 83880; 84439; 84443; 85025

== ENCOUNTER → 2025-01-03 | Outpatient (CLI) | payer MEDICARE, OTHER ==
[2025-01-03 12:24] LABS: African American GFR (CKD) 67 (>60 ml/min/1.73 sqM); Blood Urea Nitrogen 19 mg/dL (7-17); Non-African American GFR(CKD) 58 (>60 ml/min/1.73 sqM)
--- NOTE | 2025-01-03 13:16 | CT ---
EXAMINATION TYPE: CT angio chest DATE OF EXAM: 01/03/2025 COMPARISON: 08/25/2023 CLINICAL INDICATION: Female, 69 years old with history of I71.20 THORACIC AORTIC ANEURYSM WO RUPTURE LABS; [facility], Thoracic aortic aneurysm w/o rupture. Pt also C/O of SOB. TECHNIQUE: CTA scan of the thorax is performed with IV Contrast, patient injected with 80 ml mL of Isovue 370, p ulmonary embolism protocol. MIP images are created and reviewed. CT DLP: [address] CTDI: mGy Automated exposure control for dose reduction was used. FINDINGS: LUNGS: The lungs are grossly clear, there is no concerning parenchymal mass or nodule identified. T here is no pleural effusion or pneumothorax seen. The tracheobronchial tree is patent. MEDIASTINUM: There is satisfactory enhancement of the pulmonary artery and its branches, there is no CT evidence for pulmonary embolism. There are no greater than 1 cm hilar or mediastinal lymph nodes. No pericardial effusion is seen. OTHER: Small to moderate hiatal hernia. IMPRESSION: 1. NO EVIDENCE OF PULMONARY EMBOLISM. 2. NO ACUTE CARDIOPULMONARY DISEASE. 3. NO SIGNIFICANT INTERVAL CHANGE. 4. [id number] hiatal hernia. [facility], , 01/03/2025 1:13 PM
== END | disposition home or self-care (01) ==
LOC: RADCTMAIN 11:28
PROVIDERS: ATTEND Internal Medicine Interventional Cardiology
DX: K44.9 Diaphragmatic hernia without obstruction or gangrene (principal); I71.20 Thoracic aortic aneurysm, without rupture, unspecified
CPT/HCPCS: 82565; 84520; 71275; 36415; Q9967